=== PATIENT | male | born 1960 | race Caucasian/White ===

== ENCOUNTER 2017-04-26 20:38 | Inpatient (IN) | payer MEDICAID ==
[~2017-04-26] VITALS: Ht 157.5 cm; Wt 78.7 kg
[~2017-04-26 20:38] MED LIST: AMLO5TAB16 PO; ASPI-1265 PO; CARV6.253 PO; CLON0.1T20 PO; HYDR-4069 PO; INSU100C10 SQ; INSU100I31 SQ
[2017-04-26 21:07] LABS: BASOPHILS % (AUTO) 0.4 % (0-1); EOSINOPHILS # (AUTO) 0.3 X10'3 (0-0.9); EOSINOPHILS % (AUTO) 3.2 % (0-6); HEMATOCRIT 33.4 % (42.0-52.0); HEMOGLOBIN 10.9 g/dl (14.0-17.9); LYMPHOCYTES # (AUTO) 1.2 X10'3 (1.1-4.8); MEAN CORPUSCULAR HEMOGLOBIN 28.2 PG (27.0-31.0); MEAN CORPUSCULAR HGB CONC 32.8 % (33.0-36.5); MEAN CORPUSCULAR VOLUME 85.9 FL (78-98); MEAN PLATELET VOLUME 7.7 FL (7.4-10.4); MONOCYTES # (AUTO) 0.6 X10'3 (0-0.9); MONOCYTES % (AUTO) 5.2 % (2-12); NEUTROPHILS # (AUTO) 8.9 X10'3 (1.8-7.7); NEUTROPHILS % (AUTO) 80.2 % (42-75); PLATELET COUNT 331 X10'3 (140-440); RED BLOOD COUNT 3.89 X10'6 (4.70-6.10); RED CELL DISTRIBUTION WIDTH 17.1 % (11.5-14.5); WHITE BLOOD COUNT 11.1 X10'3 (4.5-11.0)
[2017-04-26 21:19] LABS: PARTIAL THROMBOPLASTIN TIME 26 SECONDS (22-32); PROTHROMBIN TIME 10.5 SECONDS (9.0-12.0)
[2017-04-26 21:29] LABS: ALANINE AMINOTRANSFERASE 47 U/L (12-78); ALBUMIN 1.9 G/DL (3.4-5.0); ALBUMIN/GLOBULIN RATIO 0.4 (1.1-1.5); ALKALINE PHOSPHATASE 262 IU/L (46-116); ANION GAP 8 (8-16); ASPARTATE AMINO TRANSFERASE 47 U/L (10-37); BILIRUBIN,TOTAL 0.4 MG/DL (0.1-1.0); BLOOD UREA NITROGEN 32 MG/DL (7-18); BUN/CREATININE RATIO 15.2 (5.4-32.0); CALCIUM 8.2 MG/DL (8.5-10.1); CHLORIDE 105 MMOL/L (99-107); GLUCOSE 324 MG/DL (70-104); MAGNESIUM 1.8 MG/DL (1.5-2.4); POTASSIUM 4.7 MMOL/L (3.5-5.1); SODIUM 136 MMOL/L (135-145); TOTAL CARBON DIOXIDE 22.6 MMOL/L (24-32); TOTAL PROTEIN 6.6 G/DL (6.4-8.2); eGFR 33 ML/MIN
[2017-04-26] MEDS ORDERED: clindamycin 600mg/D5W 50ml 50 ML IV ONE (21:30)
[2017-04-26 22:25] LABS: CLARITY,URINE CLEAR (Clear); COLOR,URINE YELLOW (Yellow); GLUCOSE, URINE 500 mg/dl (Neg); KETONES,URINE NEGATIVE (Neg); LEUKOCYTE ESTERASE ,URINE NEGATIVE (Neg); NITRITES, URINE NEGATIVE (Neg); OCCULT BLOOD,URINE MODERATE (Neg); PROTEIN,URINE >=300 mg/dl (Neg); UROBILINOGEN,URINE 0.2 E.U/dL (0.2-1.0)
[2017-04-26] MEDS ORDERED: furosemide 10 MG/1 ML 10ml inj IV ONE (22:25)
[2017-04-26] MEDS ORDERED: CefTRIAXone inj 250 MG in normal saline 50ml IV soln 50 ML IV ONE (22:25)
[2017-04-26] MEDS ORDERED: azithromycin/NS 500mg/250ml 250 ML IV ONE (22:25)
[2017-04-26 22:31] LABS: UA COLLECTION TYPE URINAL
[2017-04-26 22:32] LABS: BACTERIA,URINE FEW /HPF (Neg); SQUAMOUS EPITHELIAL CELL,UR FEW /LPF (FEW); WBC,URINE NONE SEEN /HPF (0-4)
[2017-04-26] MEDS ORDERED: cefTRIAXone 1g/NS 100ml IVPB 100 ML IV ONE (22:50)
[2017-04-27] MEDS ORDERED: magnesium 2GM in 50ml NS 50 ML IV PRN (00:05)
[2017-04-27] MEDS ORDERED: ipratropium/albuterol 3ml nebule NEB PRN (00:05)
[2017-04-27] MEDS ORDERED: albuterol 2.5 MG/3 ML nebule NEB PRN (00:05)
[2017-04-27] MEDS ORDERED: potassium Cl 20 mEq SR tablet PO PRN ×2 (00:05)
[2017-04-27] MEDS ORDERED: potassium Cl 40MEQ/NS 500ml 500 ML IV PRN ×2 (00:05)
[2017-04-27] MEDS ORDERED: magnesium 4gm in 100ml NS 100 ML IV PRN (00:05)
[2017-04-27] MEDS ORDERED: mag hydrox/Alum hydrox/simeth 30ml oral suspension PO PRN (00:05)
[2017-04-27] MEDS ORDERED: ondansetron/PF 4mg/2ml inj IV PRN (00:05)
[2017-04-27] MEDS ORDERED: magnesium Cl slow-release 64mg tablet PO PRN (00:05)
[2017-04-27] MEDS ORDERED: thiamine 100mg/ml 2ml inj. IV ONE (00:55)
[2017-04-27] MEDS ORDERED: haloperidol 5mg tablet PO PRN (00:55)
[2017-04-27] MEDS ORDERED: haloperidol lactate 5mg/ml inj IM PRN (00:55)
[2017-04-27] MEDS ORDERED: dextrose 50%-water 50ml dispensing syringe IV PRN (00:55)
[2017-04-27] MEDS ORDERED: LORazepam 2 mg/ml vial IV PRN (00:55)
[2017-04-27 02:10] VITALS: BP 158/96
[2017-04-27] MEDS: normal saline 1000ml 1,000 ML IV SCH ×2 (02:21→16:27)
[2017-04-27] MEDS: piperacillin/tazo 4.5gm/100ml 100 ML IV SCH ×3 (02:28→16:27)
[2017-04-27] MEDS: magnesium hydroxide 30ml (MOM) UD suspension PO PRN (02:44)
[2017-04-27] MEDS: HYDROcodone/acetaminophen 10/325mg tab PO PRN ×2 (03:06→16:31)
[2017-04-27 07:00] VITALS: BP 144/84
[2017-04-27] MEDS ORDERED: lactobacillus rhamnosus 10,000 MMU CELLS/CAPSULE PO SCH (07:30)
[2017-04-27] MEDS: carvedilol 6.25mg tablet PO SCH ×2 (08:35→20:00)
[2017-04-27] MEDS: heparin, porcine 5000 units/ml vial SQ SCH ×2 (08:35→20:56)
[2017-04-27] MEDS: aspirin 81mg tab.chew PO SCH (08:35)
[2017-04-27] MEDS: cloNIDine 0.1 mg tablet PO SCH ×3 (08:36→20:57)
[2017-04-27] MEDS: amLODIPine 5mg tablet PO SCH (08:36)
[2017-04-27] MEDS: hydrALAZINE 25 MG tablet PO SCH ×2 (08:36→16:27)
[2017-04-27] MEDS: K and/or MAG REPLACEMENT MC SCH (08:41)
[2017-04-27 11:00] VITALS: BP 133/78
[2017-04-27 19:30] VITALS: BP 105/62
[2017-04-27 20:00] VITALS: BP 104/59
[2017-04-27 20:56] VITALS: BP 107/58
[2017-04-27] MEDS: CefTRIAXone 2gm/NS 100ml IVPB 100 ML IV SCH (20:57)
[2017-04-27] MEDS: insulin glargine (Lantus) pen - multi-dose SQ SCH (21:53)
[2017-04-28] VITALS: BP 110/70
[2017-04-28] MEDS: piperacillin/tazo 4.5gm/100ml 100 ML IV SCH ×3 (00:24→16:35)
[2017-04-28] MEDS: magnesium hydroxide 30ml (MOM) UD suspension PO PRN (05:36)
[2017-04-28 06:05] LABS: BASOPHILS # (AUTO) 0.1 X10'3 (0-0.2); BASOPHILS % (AUTO) 1.3 % (0-1); EOSINOPHILS # (AUTO) 0.5 X10'3 (0-0.9); EOSINOPHILS % (AUTO) 7.3 % (0-6); HEMATOCRIT 29.3 % (42.0-52.0); HEMOGLOBIN 9.6 g/dl (14.0-17.9); LYMPHOCYTES # (AUTO) 1.1 X10'3 (1.1-4.8); MEAN CORPUSCULAR HEMOGLOBIN 28.2 PG (27.0-31.0); MEAN CORPUSCULAR HGB CONC 32.9 % (33.0-36.5); MEAN CORPUSCULAR VOLUME 85.7 FL (78-98); MEAN PLATELET VOLUME 7.4 FL (7.4-10.4); MONOCYTES # (AUTO) 0.5 X10'3 (0-0.9); MONOCYTES % (AUTO) 7.5 % (2-12); NEUTROPHILS # (AUTO) 4.1 X10'3 (1.8-7.7); NEUTROPHILS % (AUTO) 65.9 % (42-75); PLATELET COUNT 264 X10'3 (140-440); RED BLOOD COUNT 3.42 X10'6 (4.70-6.10); RED CELL DISTRIBUTION WIDTH 16.5 % (11.5-14.5); WHITE BLOOD COUNT 6.2 X10'3 (4.5-11.0)
[2017-04-28 06:24] LABS: ALANINE AMINOTRANSFERASE 27 U/L (12-78); ALBUMIN 1.4 G/DL (3.4-5.0); ALBUMIN/GLOBULIN RATIO 0.4 (1.1-1.5); ALKALINE PHOSPHATASE 180 IU/L (46-116); ANION GAP 8 (8-16); ASPARTATE AMINO TRANSFERASE 29 U/L (10-37); BILIRUBIN,TOTAL 0.3 MG/DL (0.1-1.0); BLOOD UREA NITROGEN 38 MG/DL (7-18); BUN/CREATININE RATIO 15.2 (5.4-32.0); CHLORIDE 107 MMOL/L (99-107); CHOL/HDL RATIO 2.5 (0.00-4.99); CHOLESTEROL 112 MG/DL (0-200); GLUCOSE 144 MG/DL (70-104); HDL CHOLESTEROL 45 MG/DL (35-60); LDL CHOLESTEROL 64 MG/DL (50-100); MAGNESIUM 1.9 MG/DL (1.5-2.4); SODIUM 137 MMOL/L (135-145); TOTAL CARBON DIOXIDE 22.2 MMOL/L (24-32); TOTAL PROTEIN 5.3 G/DL (6.4-8.2); TRIGLYCERIDES 57 MG/DL (20-135); eGFR 27 ML/MIN
[2017-04-28 07:11] VITALS: BP 125/74
[2017-04-28] MEDS: aspirin 81mg tab.chew PO SCH (07:48)
[2017-04-28] MEDS: amLODIPine 5mg tablet PO SCH (07:49)
[2017-04-28] MEDS: LACTOBACILLUS RHAMNOSUS GG 15 billion unit sprinkle caps PO SCH (07:49)
[2017-04-28] MEDS: hydrALAZINE 25 MG tablet PO SCH ×3 (07:49→16:30)
[2017-04-28] MEDS: heparin, porcine 5000 units/ml vial SQ SCH ×2 (07:50→20:03)
[2017-04-28] MEDS: HYDROcodone/acetaminophen 10/325mg tab PO PRN ×2 (07:59→20:01)
[2017-04-28] MEDS: K and/or MAG REPLACEMENT MC SCH (08:00)
[2017-04-28] MEDS: cloNIDine 0.1 mg tablet PO SCH ×3 (08:00→22:50)
[2017-04-28] MEDS: carvedilol 6.25mg tablet PO SCH ×2 (08:00→20:01)
[2017-04-28 11:00] VITALS: BP 122/70
[2017-04-28] MEDS ORDERED: furosemide 20 MG/2 ML vial IV ONE (17:20)
[2017-04-28] MEDS ORDERED: furosemide 10 MG/1 ML 10ml inj IV ONE ×2 (18:35→20:25)
[2017-04-28 18:45] VITALS: BP 130/75
[2017-04-28] MEDS ORDERED: albumin (human) 25% 100 ML IV solution IV ONE (19:45)
[2017-04-28] MEDS: CefTRIAXone 2gm/NS 100ml IVPB 100 ML IV SCH (20:41)
[2017-04-28] MEDS: insulin glargine (Lantus) pen - multi-dose SQ SCH (21:00)
[2017-04-28 21:40] VITALS: BP 133/78
[2017-04-28] MEDS ORDERED: glucagon, human recombinant 1mg kit SUBCUT PRN (22:20)
[2017-04-28] MEDS ORDERED: MESSAGE TO PHARMACY PO ONE (22:20)
[2017-04-28] MEDS ORDERED: dextrose 50%-water 50ml dispensing syringe IV PRN ×2 (22:20)
[2017-04-28] MEDS ORDERED: Insulin Detemir pen SQ ONE (23:11)
[2017-04-29] MEDS: piperacillin/tazo 4.5gm/100ml 100 ML IV SCH ×3 (00:42→16:51)
[2017-04-29] MEDS ORDERED: LORazepam 1 MG tablet PO PRN (00:55)
[2017-04-29] MEDS ORDERED: LORazepam 2 mg/ml vial IV PRN (00:55)
[2017-04-29 01:06] VITALS: BP 123/73
[2017-04-29 06:18] LABS: BASOPHILS # (AUTO) 0.1 X10'3 (0-0.2); BASOPHILS % (AUTO) 1.5 % (0-1); EOSINOPHILS # (AUTO) 0.4 X10'3 (0-0.9); EOSINOPHILS % (AUTO) 6.1 % (0-6); HEMATOCRIT 29.7 % (42.0-52.0); HEMOGLOBIN 9.5 g/dl (14.0-17.9); LYMPHOCYTES # (AUTO) 1.3 X10'3 (1.1-4.8); LYMPHOCYTES % (AUTO) 19.9 % (21-51); MEAN CORPUSCULAR HEMOGLOBIN 27.8 PG (27.0-31.0); MEAN CORPUSCULAR HGB CONC 32.1 % (33.0-36.5); MEAN CORPUSCULAR VOLUME 86.7 FL (78-98); MEAN PLATELET VOLUME 7.7 FL (7.4-10.4); MONOCYTES # (AUTO) 0.6 X10'3 (0-0.9); MONOCYTES % (AUTO) 10.1 % (2-12); NEUTROPHILS % (AUTO) 62.4 % (42-75); PLATELET COUNT 275 X10'3 (140-440); RED BLOOD COUNT 3.43 X10'6 (4.70-6.10); RED CELL DISTRIBUTION WIDTH 16.8 % (11.5-14.5); WHITE BLOOD COUNT 6.4 X10'3 (4.5-11.0)
[2017-04-29 06:54] LABS: ALANINE AMINOTRANSFERASE 30 U/L (12-78); ALBUMIN 1.5 G/DL (3.4-5.0); ALBUMIN/GLOBULIN RATIO 0.4 (1.1-1.5); ALKALINE PHOSPHATASE 176 IU/L (46-116); ANION GAP 12 (8-16); ASPARTATE AMINO TRANSFERASE 23 U/L (10-37); BILIRUBIN,TOTAL 0.3 MG/DL (0.1-1.0); BLOOD UREA NITROGEN 52 MG/DL (7-18); BUN/CREATININE RATIO 16.3 (5.4-32.0); CALCIUM 8.1 MG/DL (8.5-10.1); CHLORIDE 105 MMOL/L (99-107); GLUCOSE 105 MG/DL (70-104); MAGNESIUM 2.3 MG/DL (1.5-2.4); POTASSIUM 5.2 MMOL/L (3.5-5.1); SODIUM 139 MMOL/L (135-145); TOTAL CARBON DIOXIDE 22.2 MMOL/L (24-32); TOTAL PROTEIN 5.6 G/DL (6.4-8.2); eGFR 20 ML/MIN
[2017-04-29] MEDS: heparin, porcine 5000 units/ml vial SQ SCH (07:21)
[2017-04-29] MEDS: K and/or MAG REPLACEMENT MC SCH (07:21)
[2017-04-29 07:30] VITALS: BP 130/78
[2017-04-29] MEDS: LACTOBACILLUS RHAMNOSUS GG 15 billion unit sprinkle caps PO SCH (07:30)
[2017-04-29] MEDS: hydrALAZINE 25 MG tablet PO SCH ×3 (08:15→15:08)
[2017-04-29] MEDS: carvedilol 6.25mg tablet PO SCH ×2 (08:15→19:13)
[2017-04-29] MEDS: furosemide 40mg/4ml inj IV SCH ×2 (08:15→22:17)
[2017-04-29] MEDS: amLODIPine 5mg tablet PO SCH (08:15)
[2017-04-29] MEDS: aspirin 81mg tab.chew PO SCH (08:16)
[2017-04-29] MEDS: cloNIDine 0.1 mg tablet PO SCH ×3 (08:16→22:18)
[2017-04-29] MEDS ORDERED: LIDOcaine 1%/PF (10mg/ml) 5ml vial ONE (08:22)
[2017-04-29] MEDS: HYDROcodone/acetaminophen 10/325mg tab PO PRN ×2 (08:22→19:14)
[2017-04-29 11:30] VITALS: BP 93/60
[2017-04-29] MEDS: insulin Lispro (HumaLOG) vial - multi-dose SQ SCH (19:31)
[2017-04-29 20:00] VITALS: BP 116/70
[2017-04-29] MEDS ORDERED: albumin (human) 25% 100 ML IV solution IV ONE (20:45)
[2017-04-29] MEDS: spironolactone 25 MG tablet PO SCH (20:45)
[2017-04-29] MEDS ORDERED: Insulin Detemir pen SQ SCH (21:00)
[2017-04-29] MEDS: CefTRIAXone 2gm/NS 100ml IVPB 100 ML IV SCH (22:17)
[2017-04-29] MEDS: Insulin Detemir pen SQ SCH (22:21)
[2017-04-30] VITALS: BP 116/68
[2017-04-30] MEDS: piperacillin/tazo 4.5gm/100ml 100 ML IV SCH (00:39)
[2017-04-30] MEDS: hydrALAZINE 25 MG tablet PO SCH ×3 (00:39→16:00)
[2017-04-30] MEDS: piperacillin-tazo 2.25gm/50ml 50 ML IV SCH ×4 (03:17→20:17)
[2017-04-30 03:18] LABS: CLARITY,URINE CLOUDY (Clear); COLOR,URINE YELLOW (Yellow); GLUCOSE, URINE NEGATIVE (Neg); KETONES,URINE NEGATIVE (Neg); LEUKOCYTE ESTERASE ,URINE TRACE (Neg); NITRITES, URINE NEGATIVE (Neg); OCCULT BLOOD,URINE LARGE (Neg); PROTEIN,URINE 100 mg/dl (Neg); UROBILINOGEN,URINE 0.2 E.U/dL (0.2-1.0)
[2017-04-30 03:26] LABS: UA COLLECTION TYPE FOLEY CATH
[2017-04-30 03:28] LABS: WBC,URINE 0-4 /HPF (0-4)
[2017-04-30 03:29] LABS: RBC,URINE TNTC /HPF (0-2)
[2017-04-30 03:30] LABS: AMORPHOUS URATES 1+; BACTERIA,URINE FEW /HPF (Neg); MUCUS STRANDS NONE SEEN /LPF (Neg); SQUAMOUS EPITHELIAL CELL,UR NONE SEEN /LPF (FEW)
[2017-04-30 04:19] LABS: UA EOSINOPHILS NO EOS /HPF
[2017-04-30] MEDS: dextrose ORAL solution 15 GM/59 ML bottle PO PRN (05:15)
[2017-04-30 06:07] LABS: BASOPHILS # (AUTO) 0.1 X10'3 (0-0.2); BASOPHILS % (AUTO) 1.3 % (0-1); EOSINOPHILS # (AUTO) 0.4 X10'3 (0-0.9); EOSINOPHILS % (AUTO) 5.4 % (0-6); HEMATOCRIT 30.2 % (42.0-52.0); HEMOGLOBIN 10.1 g/dl (14.0-17.9); LYMPHOCYTES # (AUTO) 1.2 X10'3 (1.1-4.8); LYMPHOCYTES % (AUTO) 16.4 % (21-51); MEAN CORPUSCULAR HEMOGLOBIN 28.1 PG (27.0-31.0); MEAN CORPUSCULAR HGB CONC 33.3 % (33.0-36.5); MEAN CORPUSCULAR VOLUME 84.3 FL (78-98); MEAN PLATELET VOLUME 7.7 FL (7.4-10.4); MONOCYTES # (AUTO) 0.7 X10'3 (0-0.9); MONOCYTES % (AUTO) 9.5 % (2-12); NEUTROPHILS # (AUTO) 4.8 X10'3 (1.8-7.7); NEUTROPHILS % (AUTO) 67.4 % (42-75); PLATELET COUNT 315 X10'3 (140-440); RED BLOOD COUNT 3.58 X10'6 (4.70-6.10); RED CELL DISTRIBUTION WIDTH 16.6 % (11.5-14.5); WHITE BLOOD COUNT 7.1 X10'3 (4.5-11.0)
[2017-04-30 06:31] LABS: ALANINE AMINOTRANSFERASE 44 U/L (12-78); ALBUMIN 1.7 G/DL (3.4-5.0); ALBUMIN/GLOBULIN RATIO 0.4 (1.1-1.5); ALKALINE PHOSPHATASE 226 IU/L (46-116); ANION GAP 14 (8-16); ASPARTATE AMINO TRANSFERASE 46 U/L (10-37); BILIRUBIN,TOTAL 0.3 MG/DL (0.1-1.0); BLOOD UREA NITROGEN 63 MG/DL (7-18); BUN/CREATININE RATIO 16.2 (5.4-32.0); CALCIUM 8.4 MG/DL (8.5-10.1); CHLORIDE 104 MMOL/L (99-107); GLUCOSE 85 MG/DL (70-104); MAGNESIUM 2.3 MG/DL (1.5-2.4); POTASSIUM 5.3 MMOL/L (3.5-5.1); SODIUM 138 MMOL/L (135-145); TOTAL CARBON DIOXIDE 20.3 MMOL/L (24-32); TOTAL PROTEIN 6.1 G/DL (6.4-8.2); eGFR 16 ML/MIN
[2017-04-30 06:50] VITALS: BP 102/63
[2017-04-30] MEDS: LACTOBACILLUS RHAMNOSUS GG 15 billion unit sprinkle caps PO SCH (07:30)
[2017-04-30] MEDS: amLODIPine 5mg tablet PO SCH (08:00)
[2017-04-30] MEDS: cloNIDine 0.1 mg tablet PO SCH ×3 (08:00→20:17)
[2017-04-30] MEDS: spironolactone 25 MG tablet PO SCH (08:00)
[2017-04-30] MEDS: furosemide 40mg/4ml inj IV SCH ×2 (08:00→16:37)
[2017-04-30] MEDS: carvedilol 6.25mg tablet PO SCH ×2 (08:00→20:17)
[2017-04-30] MEDS: K and/or MAG REPLACEMENT MC SCH (08:00)
[2017-04-30] MEDS: aspirin 81mg tab.chew PO SCH ×3 (08:30→09:45)
[2017-04-30] MEDS: HYDROcodone/acetaminophen 10/325mg tab PO PRN ×2 (09:35→20:17)
[2017-04-30 10:26] LABS: LIPASE 118 U/L (73-393)
[2017-04-30 10:55] VITALS: BP 122/71
[2017-04-30] MEDS ORDERED: epoetin 20,000 units/ml inj IV ONE (16:00)
[2017-04-30 16:22] VITALS: BP 123/70
[2017-04-30 18:00] VITALS: BP 135/72
[2017-04-30 18:06] LABS: % IRON SATURATION 16 % (11-46); IRON 39 UG/DL (53-167); TOTAL IRON BINDING CAPACITY 245 UG/DL (259-388)
[2017-04-30 18:10] LABS: FERRITIN 43 NG/ML (26-388)
[2017-04-30] MEDS: oxymetazoline 15 ML nasal spray NS PRN (21:31)
[2017-04-30] MEDS: CefTRIAXone 2gm/NS 100ml IVPB 100 ML IV SCH (22:34)
[2017-04-30] MEDS: Insulin Detemir pen SQ SCH (22:54)
[2017-05-01] VITALS (12 sets, daily range): BP systolic 122–189; BP diastolic 69–130
[2017-05-01] MEDS: oxymetazoline 15 ML nasal spray NS PRN (00:43)
[2017-05-01] MEDS: hydrALAZINE 25 MG tablet PO SCH ×4 (00:43→23:50)
[2017-05-01] MEDS: furosemide 40mg/4ml inj IV SCH ×2 (00:43→08:26)
[2017-05-01] MEDS ORDERED: LORazepam 1 MG tablet PO PRN (00:55)
[2017-05-01] MEDS ORDERED: LORazepam 2 mg/ml vial IV PRN (00:55)
[2017-05-01] MEDS ORDERED: guaiFENesin/DM oral syrup 5 ML CUP PO PRN (02:05)
[2017-05-01] MEDS: piperacillin-tazo 2.25gm/50ml 50 ML IV SCH ×4 (03:12→21:22)
[2017-05-01 06:16] LABS: BASOPHILS # (AUTO) 0.1 X10'3 (0-0.2); BASOPHILS % (AUTO) 1.1 % (0-1); EOSINOPHILS # (AUTO) 0.3 X10'3 (0-0.9); EOSINOPHILS % (AUTO) 3.6 % (0-6); HEMATOCRIT 31.3 % (42.0-52.0); HEMOGLOBIN 10.5 g/dl (14.0-17.9); LYMPHOCYTES % (AUTO) 13.2 % (21-51); MEAN CORPUSCULAR HEMOGLOBIN 28.4 PG (27.0-31.0); MEAN CORPUSCULAR HGB CONC 33.5 % (33.0-36.5); MEAN CORPUSCULAR VOLUME 84.7 FL (78-98); MEAN PLATELET VOLUME 7.7 FL (7.4-10.4); MONOCYTES # (AUTO) 0.7 X10'3 (0-0.9); MONOCYTES % (AUTO) 9.7 % (2-12); NEUTROPHILS # (AUTO) 5.2 X10'3 (1.8-7.7); NEUTROPHILS % (AUTO) 72.4 % (42-75); PLATELET COUNT 268 X10'3 (140-440); RED CELL DISTRIBUTION WIDTH 16.4 % (11.5-14.5); WHITE BLOOD COUNT 7.2 X10'3 (4.5-11.0)
[2017-05-01 06:34] LABS: ANION GAP 12 (8-16); BLOOD UREA NITROGEN 74 MG/DL (7-18); BUN/CREATININE RATIO 16.4 (5.4-32.0); CALCIUM 8.1 MG/DL (8.5-10.1); CHLORIDE 100 MMOL/L (99-107); GLUCOSE 137 MG/DL (70-104); MAGNESIUM 2.4 MG/DL (1.5-2.4); POTASSIUM 5.5 MMOL/L (3.5-5.1); SODIUM 135 MMOL/L (135-145); TOTAL CARBON DIOXIDE 23.2 MMOL/L (24-32); eGFR 14 ML/MIN
[2017-05-01 06:35] LABS: ALANINE AMINOTRANSFERASE 49 U/L (12-78); ALBUMIN 1.7 G/DL (3.4-5.0); ALBUMIN/GLOBULIN RATIO 0.4 (1.1-1.5); ALKALINE PHOSPHATASE 202 IU/L (46-116); ASPARTATE AMINO TRANSFERASE 41 U/L (10-37); BILIRUBIN,TOTAL 0.3 MG/DL (0.1-1.0); TOTAL PROTEIN 5.9 G/DL (6.4-8.2)
[2017-05-01] MEDS: carvedilol 6.25mg tablet PO SCH ×2 (08:00→21:20)
[2017-05-01] MEDS: cloNIDine 0.1 mg tablet PO SCH (08:00)
[2017-05-01] MEDS: aspirin 81mg tab.chew PO SCH (08:25)
[2017-05-01] MEDS: insulin Lispro (HumaLOG) vial - multi-dose SQ SCH ×2 (08:25→13:25)
[2017-05-01] MEDS: amLODIPine 5mg tablet PO SCH (08:26)
[2017-05-01] MEDS: LACTOBACILLUS RHAMNOSUS GG 15 billion unit sprinkle caps PO SCH (08:26)
[2017-05-01] MEDS: HYDROcodone/acetaminophen 10/325mg tab PO PRN ×2 (08:28→21:21)
[2017-05-01 11:06] LABS: ALBUMIN 1.7 G/DL (3.4-5.0); ANION GAP 14 (8-16); BLOOD UREA NITROGEN 73 MG/DL (7-18); BUN/CREATININE RATIO 16.6 (5.4-32.0); CALCIUM 8.1 MG/DL (8.5-10.1); CHLORIDE 100 MMOL/L (99-107); GLUCOSE 124 MG/DL (70-104); POTASSIUM 5.7 MMOL/L (3.5-5.1); SODIUM 136 MMOL/L (135-145); TOTAL CARBON DIOXIDE 21.8 MMOL/L (24-32); eGFR 14 ML/MIN
[2017-05-01] MEDS: dextrose ORAL solution 15 GM/59 ML bottle PO PRN (17:24)
[2017-05-01] MEDS: DOBUTamine-DoBUTrex 500mg/D5W 250 ML IV SCH (20:01)
[2017-05-01] MEDS: furosemide inj 100 ML IV SCH (20:14)
[2017-05-01] MEDS: Insulin Detemir pen SQ SCH (21:00)
[2017-05-01] MEDS ORDERED: nitroGLYCERIN 0.4mg/hour patch TD ONE (21:15)
[2017-05-02] VITALS (19 sets, daily range): BP systolic 109–157; BP diastolic 52–80
[2017-05-02] MEDS: piperacillin-tazo 2.25gm/50ml 50 ML IV SCH ×4 (01:28→19:14)
[2017-05-02] MEDS: DOBUTamine-DoBUTrex 500mg/D5W 250 ML IV SCH (03:37)
[2017-05-02 05:45] LABS: BASOPHILS # (AUTO) 0.1 X10'3 (0-0.2); EOSINOPHILS # (AUTO) 0.4 X10'3 (0-0.9); EOSINOPHILS % (AUTO) 5.8 % (0-6); HEMATOCRIT 27.9 % (42.0-52.0); HEMOGLOBIN 9.3 g/dl (14.0-17.9); LYMPHOCYTES # (AUTO) 1.1 X10'3 (1.1-4.8); LYMPHOCYTES % (AUTO) 16.6 % (21-51); MEAN CORPUSCULAR HEMOGLOBIN 28.2 PG (27.0-31.0); MEAN CORPUSCULAR HGB CONC 33.4 % (33.0-36.5); MEAN CORPUSCULAR VOLUME 84.4 FL (78-98); MEAN PLATELET VOLUME 7.9 FL (7.4-10.4); MONOCYTES # (AUTO) 0.6 X10'3 (0-0.9); MONOCYTES % (AUTO) 9.6 % (2-12); NEUTROPHILS # (AUTO) 4.5 X10'3 (1.8-7.7); PLATELET COUNT 246 X10'3 (140-440); RED BLOOD COUNT 3.31 X10'6 (4.70-6.10); RED CELL DISTRIBUTION WIDTH 16.7 % (11.5-14.5); WHITE BLOOD COUNT 6.8 X10'3 (4.5-11.0)
[2017-05-02 06:15] LABS: ALANINE AMINOTRANSFERASE 43 U/L (12-78); ALBUMIN 1.6 G/DL (3.4-5.0); ALBUMIN/GLOBULIN RATIO 0.4 (1.1-1.5); ALKALINE PHOSPHATASE 175 IU/L (46-116); ANION GAP 13 (8-16); ASPARTATE AMINO TRANSFERASE 31 U/L (10-37); BILIRUBIN,TOTAL 0.3 MG/DL (0.1-1.0); BLOOD UREA NITROGEN 77 MG/DL (7-18); BUN/CREATININE RATIO 15.7 (5.4-32.0); CALCIUM 7.9 MG/DL (8.5-10.1); CHLORIDE 100 MMOL/L (99-107); GLUCOSE 140 MG/DL (70-104); MAGNESIUM 2.3 MG/DL (1.5-2.4); POTASSIUM 5.4 MMOL/L (3.5-5.1); SODIUM 135 MMOL/L (135-145); TOTAL CARBON DIOXIDE 22.5 MMOL/L (24-32); TOTAL PROTEIN 5.8 G/DL (6.4-8.2); eGFR 12 ML/MIN
[2017-05-02] MEDS ORDERED: lactobacillus rhamnosus 10,000 MMU CELLS/CAPSULE PO SCH (07:53)
[2017-05-02] MEDS: carvedilol 6.25mg tablet PO SCH ×2 (07:55→20:00)
[2017-05-02] MEDS: amLODIPine 5mg tablet PO SCH (07:56)
[2017-05-02] MEDS: aspirin 81mg tab.chew PO SCH (07:56)
[2017-05-02] MEDS: hydrALAZINE 25 MG tablet PO SCH ×3 (07:56→23:33)
[2017-05-02] MEDS: magnesium hydroxide 30ml (MOM) UD suspension PO PRN (07:58)
[2017-05-02] MEDS: HYDROcodone/acetaminophen 10/325mg tab PO PRN ×2 (07:58→19:24)
[2017-05-02] MEDS: furosemide inj 100 ML IV SCH (19:13)
[2017-05-02] MEDS: Insulin Detemir pen SQ SCH (21:20)
[2017-05-03] VITALS (17 sets, daily range): BP systolic 127–159; BP diastolic 58–86
[2017-05-03] MEDS: piperacillin-tazo 2.25gm/50ml 50 ML IV SCH ×4 (01:56→20:40)
[2017-05-03] MEDS: hydrALAZINE 25 MG tablet PO SCH ×3 (09:19→23:53)
[2017-05-03] MEDS: lactobacillus rhamnosus 10,000 MMU CELLS/CAPSULE PO SCH (09:19)
[2017-05-03] MEDS: aspirin 81mg tab.chew PO SCH (09:19)
[2017-05-03] MEDS: HYDROcodone/acetaminophen 10/325mg tab PO PRN ×2 (09:19→20:41)
[2017-05-03] MEDS: amLODIPine 5mg tablet PO SCH (09:19)
[2017-05-03] MEDS: carvedilol 6.25mg tablet PO SCH ×2 (09:19→20:41)
[2017-05-03] MEDS: magnesium hydroxide 30ml (MOM) UD suspension PO PRN (10:17)
[2017-05-03] MEDS: DOBUTamine-DoBUTrex 500mg/D5W 250 ML IV SCH ×2 (11:31→12:44)
[2017-05-03 15:15] LABS: BASOPHILS # (AUTO) 0.1 X10'3 (0-0.2); BASOPHILS % (AUTO) 0.8 % (0-1); EOSINOPHILS # (AUTO) 0.3 X10'3 (0-0.9); EOSINOPHILS % (AUTO) 3.3 % (0-6); HEMATOCRIT 27.9 % (42.0-52.0); HEMOGLOBIN 9.5 g/dl (14.0-17.9); LYMPHOCYTES % (AUTO) 11.8 % (21-51); MEAN CORPUSCULAR HEMOGLOBIN 28.9 PG (27.0-31.0); MEAN CORPUSCULAR VOLUME 84.9 FL (78-98); MEAN PLATELET VOLUME 7.8 FL (7.4-10.4); MONOCYTES # (AUTO) 0.8 X10'3 (0-0.9); MONOCYTES % (AUTO) 9.7 % (2-12); NEUTROPHILS # (AUTO) 6.1 X10'3 (1.8-7.7); NEUTROPHILS % (AUTO) 74.4 % (42-75); PLATELET COUNT 265 X10'3 (140-440); RED BLOOD COUNT 3.29 X10'6 (4.70-6.10); RED CELL DISTRIBUTION WIDTH 16.6 % (11.5-14.5); WHITE BLOOD COUNT 8.2 X10'3 (4.5-11.0)
[2017-05-03 15:26] LABS: ALBUMIN 1.9 G/DL (3.4-5.0); ANION GAP 12 (8-16); BLOOD UREA NITROGEN 87 MG/DL (7-18); BUN/CREATININE RATIO 16.4 (5.4-32.0); CALCIUM 8.2 MG/DL (8.5-10.1); CHLORIDE 96 MMOL/L (99-107); GLUCOSE 201 MG/DL (70-104); MAGNESIUM 2.5 MG/DL (1.5-2.4); PHOSPHORUS 5.9 MG/DL (2.3-4.5); POTASSIUM 5.7 MMOL/L (3.5-5.1); SODIUM 134 MMOL/L (135-145); TOTAL CARBON DIOXIDE 26.2 MMOL/L (24-32); eGFR 11 ML/MIN
[2017-05-03] MEDS ORDERED: sodium polystyrene sulfonate 15gm/60ml oral suspension PO ONE (17:10)
[2017-05-03] MEDS: polyethylene glycol 3350 17gm powd pack PO SCH ×2 (20:41→20:52)
[2017-05-03] MEDS: Insulin Detemir pen SQ SCH (20:46)
[2017-05-03 21:32] LABS: ALANINE AMINOTRANSFERASE 36 U/L (12-78); ALBUMIN 1.6 G/DL (3.4-5.0); ALBUMIN/GLOBULIN RATIO 0.4 (1.1-1.5); ALKALINE PHOSPHATASE 151 IU/L (46-116); ANION GAP 12 (8-16); ASPARTATE AMINO TRANSFERASE 23 U/L (10-37); BILIRUBIN,TOTAL 0.3 MG/DL (0.1-1.0); BLOOD UREA NITROGEN 77 MG/DL (7-18); BUN/CREATININE RATIO 16.7 (5.4-32.0); CALCIUM 7.2 MG/DL (8.5-10.1); CHLORIDE 103 MMOL/L (99-107); GLUCOSE 179 MG/DL (70-104); MAGNESIUM 2.2 MG/DL (1.5-2.4); PHOSPHORUS 4.8 MG/DL (2.3-4.5); POTASSIUM 4.3 MMOL/L (3.5-5.1); SODIUM 138 MMOL/L (135-145); TOTAL CARBON DIOXIDE 22.9 MMOL/L (24-32); TOTAL PROTEIN 5.7 G/DL (6.4-8.2); eGFR 13 ML/MIN
[2017-05-04] VITALS (11 sets, daily range): BP systolic 146–169; BP diastolic 47–72
[2017-05-04] MEDS: piperacillin-tazo 2.25gm/50ml 50 ML IV SCH ×4 (03:06→20:25)
[2017-05-04 03:23] LABS: ALANINE AMINOTRANSFERASE 42 U/L (12-78); ALBUMIN 1.9 G/DL (3.4-5.0); ALBUMIN/GLOBULIN RATIO 0.4 (1.1-1.5); ALKALINE PHOSPHATASE 162 IU/L (46-116); ANION GAP 13 (8-16); ASPARTATE AMINO TRANSFERASE 26 U/L (10-37); BILIRUBIN,TOTAL 0.4 MG/DL (0.1-1.0); BLOOD UREA NITROGEN 87 MG/DL (7-18); BUN/CREATININE RATIO 17.1 (5.4-32.0); CALCIUM 8.2 MG/DL (8.5-10.1); CHLORIDE 99 MMOL/L (99-107); GLUCOSE 148 MG/DL (70-104); MAGNESIUM 2.4 MG/DL (1.5-2.4); PHOSPHORUS 5.4 MG/DL (2.3-4.5); SODIUM 139 MMOL/L (135-145); TOTAL CARBON DIOXIDE 26.7 MMOL/L (24-32); TOTAL PROTEIN 6.3 G/DL (6.4-8.2); eGFR 12 ML/MIN
[2017-05-04 03:40] LABS: BASOPHILS # (AUTO) 0.1 X10'3 (0-0.2); BASOPHILS % (AUTO) 0.7 % (0-1); EOSINOPHILS # (AUTO) 0.3 X10'3 (0-0.9); EOSINOPHILS % (AUTO) 4.1 % (0-6); HEMATOCRIT 27.6 % (42.0-52.0); HEMOGLOBIN 9.2 g/dl (14.0-17.9); LYMPHOCYTES # (AUTO) 1.2 X10'3 (1.1-4.8); LYMPHOCYTES % (AUTO) 14.4 % (21-51); MEAN CORPUSCULAR HEMOGLOBIN 28.1 PG (27.0-31.0); MEAN CORPUSCULAR HGB CONC 33.4 % (33.0-36.5); MEAN CORPUSCULAR VOLUME 84.1 FL (78-98); MEAN PLATELET VOLUME 7.6 FL (7.4-10.4); MONOCYTES # (AUTO) 0.8 X10'3 (0-0.9); MONOCYTES % (AUTO) 10.2 % (2-12); NEUTROPHILS # (AUTO) 5.7 X10'3 (1.8-7.7); NEUTROPHILS % (AUTO) 70.6 % (42-75); PLATELET COUNT 285 X10'3 (140-440); RED BLOOD COUNT 3.29 X10'6 (4.70-6.10); RED CELL DISTRIBUTION WIDTH 16.1 % (11.5-14.5); WHITE BLOOD COUNT 8.1 X10'3 (4.5-11.0)
[2017-05-04 06:43] LABS: ALANINE AMINOTRANSFERASE 38 U/L (12-78); ALBUMIN 1.9 G/DL (3.4-5.0); ALBUMIN/GLOBULIN RATIO 0.4 (1.1-1.5); ALKALINE PHOSPHATASE 163 IU/L (46-116); ANION GAP 13 (8-16); ASPARTATE AMINO TRANSFERASE 25 U/L (10-37); BILIRUBIN,TOTAL 0.4 MG/DL (0.1-1.0); BLOOD UREA NITROGEN 87 MG/DL (7-18); BUN/CREATININE RATIO 16.4 (5.4-32.0); CALCIUM 8.2 MG/DL (8.5-10.1); CHLORIDE 98 MMOL/L (99-107); GLUCOSE 121 MG/DL (70-104); POTASSIUM 4.8 MMOL/L (3.5-5.1); SODIUM 138 MMOL/L (135-145); TOTAL CARBON DIOXIDE 27.3 MMOL/L (24-32); TOTAL PROTEIN 6.4 G/DL (6.4-8.2); eGFR 11 ML/MIN
[2017-05-04] MEDS: lactobacillus rhamnosus 10,000 MMU CELLS/CAPSULE PO SCH (07:43)
[2017-05-04] MEDS: carvedilol 6.25mg tablet PO SCH ×2 (07:43→20:25)
[2017-05-04] MEDS: hydrALAZINE 25 MG tablet PO SCH ×3 (07:44→23:38)
[2017-05-04] MEDS: aspirin 81mg tab.chew PO SCH (07:44)
[2017-05-04] MEDS: amLODIPine 5mg tablet PO SCH (07:44)
[2017-05-04] MEDS: HYDROcodone/acetaminophen 10/325mg tab PO PRN ×2 (10:56→20:44)
[2017-05-04] MEDS: DOBUTamine-DoBUTrex 500mg/D5W 250 ML IV SCH ×2 (10:57→19:25)
[2017-05-04] MEDS: polyethylene glycol 3350 17gm powd pack PO SCH (21:00)
[2017-05-04] MEDS: Insulin Detemir pen SQ SCH (21:00)
[2017-05-05] VITALS (11 sets, daily range): BP systolic 128–164; BP diastolic 55–88
[2017-05-05] MEDS: piperacillin-tazo 2.25gm/50ml 50 ML IV SCH ×4 (01:49→19:17)
[2017-05-05] MEDS: DOBUTamine-DoBUTrex 500mg/D5W 250 ML IV SCH ×3 (03:02→21:58)
[2017-05-05 06:16] LABS: BASOPHILS % (AUTO) 0.4 % (0-1); EOSINOPHILS # (AUTO) 0.5 X10'3 (0-0.9); EOSINOPHILS % (AUTO) 5.5 % (0-6); HEMATOCRIT 27.4 % (42.0-52.0); HEMOGLOBIN 9.4 g/dl (14.0-17.9); LYMPHOCYTES # (AUTO) 1.1 X10'3 (1.1-4.8); LYMPHOCYTES % (AUTO) 12.7 % (21-51); MEAN CORPUSCULAR HGB CONC 34.4 % (33.0-36.5); MEAN CORPUSCULAR VOLUME 84.1 FL (78-98); MEAN PLATELET VOLUME 7.6 FL (7.4-10.4); MONOCYTES # (AUTO) 0.8 X10'3 (0-0.9); MONOCYTES % (AUTO) 9.2 % (2-12); NEUTROPHILS # (AUTO) 6.3 X10'3 (1.8-7.7); NEUTROPHILS % (AUTO) 72.2 % (42-75); PLATELET COUNT 293 X10'3 (140-440); RED BLOOD COUNT 3.26 X10'6 (4.70-6.10); RED CELL DISTRIBUTION WIDTH 16.4 % (11.5-14.5); WHITE BLOOD COUNT 8.7 X10'3 (4.5-11.0)
[2017-05-05 06:58] LABS: ALBUMIN 1.9 G/DL (3.4-5.0); ANION GAP 12 (8-16); BLOOD UREA NITROGEN 83 MG/DL (7-18); BUN/CREATININE RATIO 15.7 (5.4-32.0); CALCIUM 8.2 MG/DL (8.5-10.1); CHLORIDE 96 MMOL/L (99-107); GLUCOSE 167 MG/DL (70-104); PHOSPHORUS 5.5 MG/DL (2.3-4.5); POTASSIUM 4.4 MMOL/L (3.5-5.1); SODIUM 137 MMOL/L (135-145); TOTAL CARBON DIOXIDE 28.6 MMOL/L (24-32); eGFR 11 ML/MIN
[2017-05-05] MEDS: amLODIPine 5mg tablet PO SCH (07:56)
[2017-05-05] MEDS: carvedilol 6.25mg tablet PO SCH ×2 (07:56→19:17)
[2017-05-05] MEDS: hydrALAZINE 25 MG tablet PO SCH ×3 (07:56→23:50)
[2017-05-05] MEDS: lactobacillus rhamnosus 10,000 MMU CELLS/CAPSULE PO SCH (07:56)
[2017-05-05] MEDS: aspirin 81mg tab.chew PO SCH (07:56)
[2017-05-05 13:05] LABS: ALANINE AMINOTRANSFERASE 34 U/L (12-78); ALBUMIN/GLOBULIN RATIO 0.4 (1.1-1.5); ALKALINE PHOSPHATASE 150 IU/L (46-116); ASPARTATE AMINO TRANSFERASE 26 U/L (10-37); BILIRUBIN,TOTAL 0.4 MG/DL (0.1-1.0); MAGNESIUM 2.3 MG/DL (1.5-2.4); TOTAL PROTEIN 6.4 G/DL (6.4-8.2)
[2017-05-05] MEDS: HYDROcodone/acetaminophen 10/325mg tab PO PRN (14:19)
[2017-05-05] MEDS: Insulin Detemir pen SQ SCH (21:00)
[2017-05-05] MEDS: polyethylene glycol 3350 17gm powd pack PO SCH (21:00)
[2017-05-06] VITALS (13 sets, daily range): BP systolic 137–159; BP diastolic 64–75
[2017-05-06] MEDS: piperacillin-tazo 2.25gm/50ml 50 ML IV SCH ×3 (02:11→13:25)
[2017-05-06 05:56] LABS: BASOPHILS # (AUTO) 0.1 X10'3 (0-0.2); BASOPHILS % (AUTO) 0.6 % (0-1); EOSINOPHILS # (AUTO) 0.4 X10'3 (0-0.9); EOSINOPHILS % (AUTO) 5.4 % (0-6); HEMATOCRIT 26.9 % (42.0-52.0); HEMOGLOBIN 9.2 g/dl (14.0-17.9); LYMPHOCYTES # (AUTO) 1.2 X10'3 (1.1-4.8); LYMPHOCYTES % (AUTO) 14.8 % (21-51); MEAN CORPUSCULAR HEMOGLOBIN 28.9 PG (27.0-31.0); MEAN CORPUSCULAR HGB CONC 34.3 % (33.0-36.5); MEAN CORPUSCULAR VOLUME 84.2 FL (78-98); MEAN PLATELET VOLUME 7.5 FL (7.4-10.4); MONOCYTES % (AUTO) 11.8 % (2-12); NEUTROPHILS # (AUTO) 5.6 X10'3 (1.8-7.7); NEUTROPHILS % (AUTO) 67.4 % (42-75); PLATELET COUNT 297 X10'3 (140-440); RED CELL DISTRIBUTION WIDTH 16.6 % (11.5-14.5); WHITE BLOOD COUNT 8.3 X10'3 (4.5-11.0)
[2017-05-06 06:03] LABS: ALANINE AMINOTRANSFERASE 29 U/L (12-78); ALBUMIN 1.8 G/DL (3.4-5.0); ALBUMIN/GLOBULIN RATIO 0.4 (1.1-1.5); ALKALINE PHOSPHATASE 138 IU/L (46-116); ANION GAP 10 (8-16); ASPARTATE AMINO TRANSFERASE 20 U/L (10-37); BILIRUBIN,TOTAL 0.5 MG/DL (0.1-1.0); BLOOD UREA NITROGEN 76 MG/DL (7-18); BUN/CREATININE RATIO 14.3 (5.4-32.0); CALCIUM 8.3 MG/DL (8.5-10.1); CHLORIDE 97 MMOL/L (99-107); GLUCOSE 185 MG/DL (70-104); PHOSPHORUS 5.4 MG/DL (2.3-4.5); POTASSIUM 3.9 MMOL/L (3.5-5.1); SODIUM 136 MMOL/L (135-145); TOTAL CARBON DIOXIDE 29.1 MMOL/L (24-32); TOTAL PROTEIN 6.4 G/DL (6.4-8.2); eGFR 11 ML/MIN
[2017-05-06] MEDS: amLODIPine 5mg tablet PO SCH (08:33)
[2017-05-06] MEDS: hydrALAZINE 25 MG tablet PO SCH ×2 (08:33→15:10)
[2017-05-06] MEDS: aspirin 81mg tab.chew PO SCH (08:33)
[2017-05-06] MEDS: lactobacillus rhamnosus 10,000 MMU CELLS/CAPSULE PO SCH (08:33)
[2017-05-06] MEDS: carvedilol 6.25mg tablet PO SCH ×2 (08:33→19:31)
[2017-05-06] MEDS: HYDROcodone/acetaminophen 10/325mg tab PO PRN ×2 (08:37→19:33)
[2017-05-06] MEDS: polyethylene glycol 3350 17gm powd pack PO SCH (21:00)
[2017-05-06] MEDS: Insulin Detemir pen SQ SCH (21:00)
[2017-05-07] VITALS (15 sets, daily range): BP systolic 132–177; BP diastolic 56–72
[2017-05-07] MEDS: hydrALAZINE 25 MG tablet PO SCH ×3 (00:33→16:27)
[2017-05-07 05:31] LABS: BASOPHILS # (AUTO) 0.1 X10'3 (0-0.2); BASOPHILS % (AUTO) 0.7 % (0-1); EOSINOPHILS # (AUTO) 0.6 X10'3 (0-0.9); EOSINOPHILS % (AUTO) 8.3 % (0-6); HEMOGLOBIN 9.2 g/dl (14.0-17.9); LYMPHOCYTES # (AUTO) 1.3 X10'3 (1.1-4.8); LYMPHOCYTES % (AUTO) 17.3 % (21-51); MEAN CORPUSCULAR HEMOGLOBIN 28.6 PG (27.0-31.0); MEAN CORPUSCULAR HGB CONC 34.2 % (33.0-36.5); MEAN CORPUSCULAR VOLUME 83.7 FL (78-98); MEAN PLATELET VOLUME 7.4 FL (7.4-10.4); MONOCYTES # (AUTO) 0.9 X10'3 (0-0.9); NEUTROPHILS # (AUTO) 4.6 X10'3 (1.8-7.7); NEUTROPHILS % (AUTO) 61.7 % (42-75); PLATELET COUNT 292 X10'3 (140-440); RED BLOOD COUNT 3.22 X10'6 (4.70-6.10); RED CELL DISTRIBUTION WIDTH 16.5 % (11.5-14.5); WHITE BLOOD COUNT 7.4 X10'3 (4.5-11.0)
[2017-05-07 05:47] LABS: ALANINE AMINOTRANSFERASE 21 U/L (12-78); ALBUMIN 1.9 G/DL (3.4-5.0); ALBUMIN/GLOBULIN RATIO 0.4 (1.1-1.5); ALKALINE PHOSPHATASE 129 IU/L (46-116); ANION GAP 9 (8-16); ASPARTATE AMINO TRANSFERASE 19 U/L (10-37); BILIRUBIN,TOTAL 0.4 MG/DL (0.1-1.0); BLOOD UREA NITROGEN 73 MG/DL (7-18); BUN/CREATININE RATIO 15.5 (5.4-32.0); CALCIUM 8.6 MG/DL (8.5-10.1); CHLORIDE 100 MMOL/L (99-107); GLUCOSE 162 MG/DL (70-104); PHOSPHORUS 5.7 MG/DL (2.3-4.5); SODIUM 142 MMOL/L (135-145); TOTAL CARBON DIOXIDE 32.7 MMOL/L (24-32); TOTAL PROTEIN 6.5 G/DL (6.4-8.2); eGFR 13 ML/MIN
[2017-05-07] MEDS: lactobacillus rhamnosus 10,000 MMU CELLS/CAPSULE PO SCH (07:32)
[2017-05-07] MEDS: aspirin 81mg tab.chew PO SCH (07:32)
[2017-05-07] MEDS: carvedilol 6.25mg tablet PO SCH ×2 (07:32→20:08)
[2017-05-07] MEDS: amLODIPine 5mg tablet PO SCH (07:32)
[2017-05-07] MEDS: HYDROcodone/acetaminophen 5mg/325mg tablet PO PRN (07:38)
[2017-05-07] MEDS ORDERED: DOBUTamine-DoBUTrex 500mg/D5W 250 ML IV SCH (12:50)
[2017-05-07] MEDS: HYDROcodone/acetaminophen 10/325mg tab PO PRN (18:33)
[2017-05-07] MEDS: polyethylene glycol 3350 17gm powd pack PO SCH (20:09)
[2017-05-07] MEDS: Insulin Detemir pen SQ SCH (20:21)
[2017-05-08] MEDS: hydrALAZINE 25 MG tablet PO SCH ×3 (00:07→16:16)
[2017-05-08 03:19] VITALS: BP 139/61
[2017-05-08 06:00] VITALS: BP 146/69
[2017-05-08] MEDS: aspirin 81mg tab.chew PO SCH (07:25)
[2017-05-08] MEDS: carvedilol 6.25mg tablet PO SCH ×3 (07:26→20:13)
[2017-05-08] MEDS: amLODIPine 5mg tablet PO SCH (07:26)
[2017-05-08] MEDS: lactobacillus rhamnosus 10,000 MMU CELLS/CAPSULE PO SCH (07:26)
[2017-05-08 11:00] VITALS: BP 135/66
[2017-05-08 15:00] VITALS: BP 143/65
[2017-05-08] MEDS: HYDROcodone/acetaminophen 10/325mg tab PO PRN (16:15)
[2017-05-08 19:00] VITALS: BP 147/72
[2017-05-08] MEDS: Insulin Detemir pen SQ SCH (20:08)
[2017-05-08] MEDS: polyethylene glycol 3350 17gm powd pack PO SCH (20:13)
[2017-05-08 22:00] VITALS: BP 127/59
[2017-05-09] MEDS: hydrALAZINE 25 MG tablet PO SCH ×3 (00:28→16:22)
[2017-05-09 02:00] VITALS: BP 153/74
[2017-05-09 06:00] VITALS: BP 142/62
[2017-05-09 06:14] LABS: BASOPHILS # (AUTO) 0.1 X10'3 (0-0.2); BASOPHILS % (AUTO) 0.9 % (0-1); EOSINOPHILS # (AUTO) 0.6 X10'3 (0-0.9); HEMATOCRIT 26.8 % (42.0-52.0); LYMPHOCYTES # (AUTO) 1.4 X10'3 (1.1-4.8); LYMPHOCYTES % (AUTO) 19.4 % (21-51); MEAN CORPUSCULAR HEMOGLOBIN 28.4 PG (27.0-31.0); MEAN CORPUSCULAR HGB CONC 33.6 % (33.0-36.5); MEAN CORPUSCULAR VOLUME 84.6 FL (78-98); MEAN PLATELET VOLUME 7.4 FL (7.4-10.4); MONOCYTES # (AUTO) 0.7 X10'3 (0-0.9); MONOCYTES % (AUTO) 9.3 % (2-12); NEUTROPHILS # (AUTO) 4.5 X10'3 (1.8-7.7); NEUTROPHILS % (AUTO) 62.4 % (42-75); PLATELET COUNT 303 X10'3 (140-440); RED BLOOD COUNT 3.17 X10'6 (4.70-6.10); RED CELL DISTRIBUTION WIDTH 16.6 % (11.5-14.5); WHITE BLOOD COUNT 7.2 X10'3 (4.5-11.0)
[2017-05-09 07:02] LABS: ALANINE AMINOTRANSFERASE 24 U/L (12-78); ALBUMIN/GLOBULIN RATIO 0.4 (1.1-1.5); ALKALINE PHOSPHATASE 143 IU/L (46-116); ANION GAP 11 (8-16); ASPARTATE AMINO TRANSFERASE 21 U/L (10-37); BILIRUBIN,TOTAL 0.3 MG/DL (0.1-1.0); BLOOD UREA NITROGEN 75 MG/DL (7-18); BUN/CREATININE RATIO 18.8 (5.4-32.0); CALCIUM 8.7 MG/DL (8.5-10.1); CHLORIDE 102 MMOL/L (99-107); GLUCOSE 157 MG/DL (70-104); PHOSPHORUS 5.8 MG/DL (2.3-4.5); POTASSIUM 4.4 MMOL/L (3.5-5.1); SODIUM 140 MMOL/L (135-145); TOTAL CARBON DIOXIDE 26.6 MMOL/L (24-32); TOTAL PROTEIN 6.6 G/DL (6.4-8.2); eGFR 16 ML/MIN
[2017-05-09] MEDS: amLODIPine 5mg tablet PO SCH (07:35)
[2017-05-09] MEDS: carvedilol 6.25mg tablet PO SCH ×2 (07:35→20:15)
[2017-05-09] MEDS: lactobacillus rhamnosus 10,000 MMU CELLS/CAPSULE PO SCH (07:35)
[2017-05-09] MEDS: aspirin 81mg tab.chew PO SCH (07:35)
[2017-05-09] MEDS: HYDROcodone/acetaminophen 10/325mg tab PO PRN ×3 (07:39→20:28)
[2017-05-09] MEDS: magnesium hydroxide 30ml (MOM) UD suspension PO PRN (10:26)
[2017-05-09 11:00] VITALS: BP 127/57
[2017-05-09 15:00] VITALS: BP 133/57
[2017-05-09 18:30] VITALS: BP 140/69
[2017-05-09] MEDS: Insulin Detemir pen SQ SCH (20:06)
[2017-05-09] MEDS: polyethylene glycol 3350 17gm powd pack PO SCH (20:15)
[2017-05-09 22:00] VITALS: BP 130/68
[2017-05-10] MEDS: hydrALAZINE 25 MG tablet PO SCH ×3 (00:12→16:13)
[2017-05-10 02:00] VITALS: BP 147/71
[2017-05-10 04:55] LABS: BASOPHILS # (AUTO) 0.1 X10'3 (0-0.2); BASOPHILS % (AUTO) 0.8 % (0-1); EOSINOPHILS # (AUTO) 0.6 X10'3 (0-0.9); EOSINOPHILS % (AUTO) 7.7 % (0-6); HEMATOCRIT 26.2 % (42.0-52.0); HEMOGLOBIN 8.8 g/dl (14.0-17.9); LYMPHOCYTES # (AUTO) 1.5 X10'3 (1.1-4.8); LYMPHOCYTES % (AUTO) 20.1 % (21-51); MEAN CORPUSCULAR HEMOGLOBIN 28.4 PG (27.0-31.0); MEAN CORPUSCULAR HGB CONC 33.7 % (33.0-36.5); MEAN CORPUSCULAR VOLUME 84.3 FL (78-98); MEAN PLATELET VOLUME 7.6 FL (7.4-10.4); MONOCYTES # (AUTO) 0.7 X10'3 (0-0.9); MONOCYTES % (AUTO) 9.5 % (2-12); NEUTROPHILS # (AUTO) 4.8 X10'3 (1.8-7.7); NEUTROPHILS % (AUTO) 61.9 % (42-75); PLATELET COUNT 320 X10'3 (140-440); RED BLOOD COUNT 3.11 X10'6 (4.70-6.10); RED CELL DISTRIBUTION WIDTH 16.9 % (11.5-14.5); WHITE BLOOD COUNT 7.7 X10'3 (4.5-11.0)
[2017-05-10 05:13] LABS: ALANINE AMINOTRANSFERASE 27 U/L (12-78); ALBUMIN 2.2 G/DL (3.4-5.0); ALBUMIN/GLOBULIN RATIO 0.5 (1.1-1.5); ALKALINE PHOSPHATASE 152 IU/L (46-116); ANION GAP 9 (8-16); ASPARTATE AMINO TRANSFERASE 26 U/L (10-37); BILIRUBIN,TOTAL 0.3 MG/DL (0.1-1.0); BLOOD UREA NITROGEN 85 MG/DL (7-18); BUN/CREATININE RATIO 20.7 (5.4-32.0); CALCIUM 8.8 MG/DL (8.5-10.1); CHLORIDE 103 MMOL/L (99-107); GLUCOSE 188 MG/DL (70-104); PHOSPHORUS 4.7 MG/DL (2.3-4.5); POTASSIUM 5.2 MMOL/L (3.5-5.1); SODIUM 140 MMOL/L (135-145); TOTAL CARBON DIOXIDE 28.3 MMOL/L (24-32); TOTAL PROTEIN 6.8 G/DL (6.4-8.2); eGFR 15 ML/MIN
[2017-05-10 06:00] VITALS: BP 150/67
[2017-05-10] MEDS: lactobacillus rhamnosus 10,000 MMU CELLS/CAPSULE PO SCH (07:28)
[2017-05-10] MEDS: carvedilol 6.25mg tablet PO SCH ×2 (07:29→20:14)
[2017-05-10] MEDS: amLODIPine 5mg tablet PO SCH (07:29)
[2017-05-10] MEDS: HYDROcodone/acetaminophen 10/325mg tab PO PRN ×3 (07:29→21:12)
[2017-05-10] MEDS: aspirin 81mg tab.chew PO SCH (07:45)
[2017-05-10 11:00] VITALS: BP 130/56
[2017-05-10 15:00] VITALS: BP 141/69
[2017-05-10] MEDS: magnesium hydroxide 30ml (MOM) UD suspension PO PRN (16:14)
[2017-05-10 19:00] VITALS: BP 131/60
[2017-05-10] MEDS: Insulin Detemir pen SQ SCH (21:00)
[2017-05-10] MEDS: polyethylene glycol 3350 17gm powd pack PO SCH (21:12)
[2017-05-10 23:00] VITALS: BP 141/69
[2017-05-11] MEDS: hydrALAZINE 25 MG tablet PO SCH ×4 (00:07→23:58)
[2017-05-11 03:00] VITALS: BP 147/63
[2017-05-11 06:00] VITALS: BP 155/80
[2017-05-11] MEDS: lactobacillus rhamnosus 10,000 MMU CELLS/CAPSULE PO SCH (09:39)
[2017-05-11] MEDS: carvedilol 6.25mg tablet PO SCH ×2 (09:40→20:07)
[2017-05-11] MEDS: amLODIPine 5mg tablet PO SCH (09:40)
[2017-05-11] MEDS: aspirin 81mg tab.chew PO SCH (09:41)
[2017-05-11] MEDS: HYDROcodone/acetaminophen 10/325mg tab PO PRN ×2 (09:49→19:04)
[2017-05-11 11:00] VITALS: BP 125/75
[2017-05-11 11:44] LABS: UREA NITROGEN 24HR,URINE 9.4 GM/24HR (7-20)
[2017-05-11 15:00] VITALS: BP 138/64
[2017-05-11 18:30] VITALS: BP 133/64
[2017-05-11] MEDS: polyethylene glycol 3350 17gm powd pack PO SCH (20:07)
[2017-05-11] MEDS: Insulin Detemir pen SQ SCH (21:04)
[2017-05-11 22:00] VITALS: BP 131/67
[2017-05-12 02:00] VITALS: BP 150/59
[2017-05-12 06:00] VITALS: BP 136/66
[2017-05-12 06:52] LABS: BASOPHILS # (AUTO) 0.1 X10'3 (0-0.2); BASOPHILS % (AUTO) 1.3 % (0-1); EOSINOPHILS # (AUTO) 0.7 X10'3 (0-0.9); EOSINOPHILS % (AUTO) 7.9 % (0-6); HEMOGLOBIN 9.4 g/dl (14.0-17.9); LYMPHOCYTES # (AUTO) 1.2 X10'3 (1.1-4.8); LYMPHOCYTES % (AUTO) 13.8 % (21-51); MEAN CORPUSCULAR HEMOGLOBIN 28.7 PG (27.0-31.0); MEAN CORPUSCULAR HGB CONC 33.5 % (33.0-36.5); MEAN CORPUSCULAR VOLUME 85.7 FL (78-98); MEAN PLATELET VOLUME 7.2 FL (7.4-10.4); MONOCYTES # (AUTO) 0.7 X10'3 (0-0.9); MONOCYTES % (AUTO) 8.1 % (2-12); NEUTROPHILS # (AUTO) 5.9 X10'3 (1.8-7.7); NEUTROPHILS % (AUTO) 68.9 % (42-75); PLATELET COUNT 334 X10'3 (140-440); RED BLOOD COUNT 3.27 X10'6 (4.70-6.10); RED CELL DISTRIBUTION WIDTH 17.1 % (11.5-14.5); WHITE BLOOD COUNT 8.5 X10'3 (4.5-11.0)
[2017-05-12 07:09] LABS: ALANINE AMINOTRANSFERASE 37 U/L (12-78); ALBUMIN 2.5 G/DL (3.4-5.0); ALBUMIN/GLOBULIN RATIO 0.5 (1.1-1.5); ALKALINE PHOSPHATASE 197 IU/L (46-116); ANION GAP 6 (8-16); ASPARTATE AMINO TRANSFERASE 29 U/L (10-37); BILIRUBIN,TOTAL 0.4 MG/DL (0.1-1.0); BLOOD UREA NITROGEN 100 MG/DL (7-18); BUN/CREATININE RATIO 24.4 (5.4-32.0); CHLORIDE 102 MMOL/L (99-107); GLUCOSE 139 MG/DL (70-104); MAGNESIUM 2.9 MG/DL (1.5-2.4); PHOSPHORUS 4.4 MG/DL (2.3-4.5); SODIUM 137 MMOL/L (135-145); TOTAL CARBON DIOXIDE 28.8 MMOL/L (24-32); TOTAL PROTEIN 7.3 G/DL (6.4-8.2); eGFR 15 ML/MIN
[2017-05-12] MEDS: hydrALAZINE 25 MG tablet PO SCH ×3 (08:22→23:57)
[2017-05-12] MEDS: amLODIPine 5mg tablet PO SCH (08:22)
[2017-05-12] MEDS: carvedilol 6.25mg tablet PO SCH ×2 (08:22→19:59)
[2017-05-12] MEDS: lactobacillus rhamnosus 10,000 MMU CELLS/CAPSULE PO SCH (08:22)
[2017-05-12] MEDS: aspirin 81mg tab.chew PO SCH (08:22)
[2017-05-12] MEDS: HYDROcodone/acetaminophen 10/325mg tab PO PRN ×3 (08:41→21:03)
[2017-05-12] MEDS: insulin Lispro (HumaLOG) vial - multi-dose SQ SCH ×2 (09:06→18:56)
[2017-05-12 11:00] VITALS: BP 130/68
[2017-05-12] MEDS: dextrose ORAL solution 15 GM/59 ML bottle PO PRN (12:12)
[2017-05-12 15:00] VITALS: BP 135/87
[2017-05-12 18:30] VITALS: BP 155/72
[2017-05-12] MEDS: polyethylene glycol 3350 17gm powd pack PO SCH (19:59)
[2017-05-12] MEDS: Insulin Detemir pen SQ SCH (21:00)
[2017-05-12 22:00] VITALS: BP 120/53
[2017-05-13] VITALS (7 sets, daily range): BP systolic 130–183; BP diastolic 56–78
[2017-05-13 06:42] LABS: BASOPHILS % (AUTO) 0.2 % (0-1); EOSINOPHILS # (AUTO) 0.7 X10'3 (0-0.9); EOSINOPHILS % (AUTO) 7.8 % (0-6); HEMATOCRIT 27.3 % (42.0-52.0); HEMOGLOBIN 9.2 g/dl (14.0-17.9); LYMPHOCYTES # (AUTO) 1.3 X10'3 (1.1-4.8); LYMPHOCYTES % (AUTO) 15.7 % (21-51); MEAN CORPUSCULAR HEMOGLOBIN 28.8 PG (27.0-31.0); MEAN CORPUSCULAR HGB CONC 33.7 % (33.0-36.5); MEAN CORPUSCULAR VOLUME 85.6 FL (78-98); MEAN PLATELET VOLUME 7.1 FL (7.4-10.4); MONOCYTES # (AUTO) 0.8 X10'3 (0-0.9); MONOCYTES % (AUTO) 9.4 % (2-12); NEUTROPHILS # (AUTO) 5.7 X10'3 (1.8-7.7); NEUTROPHILS % (AUTO) 66.9 % (42-75); PLATELET COUNT 366 X10'3 (140-440); RED BLOOD COUNT 3.18 X10'6 (4.70-6.10); RED CELL DISTRIBUTION WIDTH 17.4 % (11.5-14.5); WHITE BLOOD COUNT 8.5 X10'3 (4.5-11.0)
[2017-05-13 07:04] LABS: ALANINE AMINOTRANSFERASE 46 U/L (12-78); ALBUMIN 2.5 G/DL (3.4-5.0); ALBUMIN/GLOBULIN RATIO 0.5 (1.1-1.5); ALKALINE PHOSPHATASE 243 IU/L (46-116); ANION GAP 9 (8-16); ASPARTATE AMINO TRANSFERASE 37 U/L (10-37); BILIRUBIN,TOTAL 0.5 MG/DL (0.1-1.0); BLOOD UREA NITROGEN 107 MG/DL (7-18); BUN/CREATININE RATIO 23.8 (5.4-32.0); CALCIUM 8.9 MG/DL (8.5-10.1); CHLORIDE 102 MMOL/L (99-107); GLUCOSE 114 MG/DL (70-104); MAGNESIUM 2.7 MG/DL (1.5-2.4); PHOSPHORUS 4.7 MG/DL (2.3-4.5); POTASSIUM 5.8 MMOL/L (3.5-5.1); SODIUM 138 MMOL/L (135-145); TOTAL CARBON DIOXIDE 27.1 MMOL/L (24-32); TOTAL PROTEIN 7.4 G/DL (6.4-8.2); eGFR 14 ML/MIN
[2017-05-13] MEDS ORDERED: sodium polystyrene sulfonate 15gm/60ml oral suspension PO ONE (08:05)
[2017-05-13] MEDS: lactobacillus rhamnosus 10,000 MMU CELLS/CAPSULE PO SCH (08:45)
[2017-05-13] MEDS: hydrALAZINE 25 MG tablet PO SCH ×3 (08:48→23:06)
[2017-05-13] MEDS: aspirin 81mg tab.chew PO SCH (08:48)
[2017-05-13] MEDS: amLODIPine 5mg tablet PO SCH (08:48)
[2017-05-13] MEDS: carvedilol 6.25mg tablet PO SCH ×2 (08:48→19:31)
[2017-05-13] MEDS: insulin Lispro (HumaLOG) vial - multi-dose SQ SCH ×2 (08:51→19:30)
[2017-05-13] MEDS: HYDROcodone/acetaminophen 10/325mg tab PO PRN (08:57)
[2017-05-13] MEDS: DOBUTamine-DoBUTrex 500mg/D5W 250 ML IV SCH (15:15)
[2017-05-13] MEDS ORDERED: metoclopramide 5 mg/ml inj IV ONE (16:25)
[2017-05-13] MEDS ORDERED: glycerin ADULT rectal suppository RC ONE (16:25)
[2017-05-13] MEDS ORDERED: glycerin ADULT rectal suppository RC PRN (18:00)
[2017-05-13] MEDS: lactulose 20gm/30ml cup PO SCH (20:00)
[2017-05-13] MEDS: polyethylene glycol 3350 17gm powd pack PO SCH (20:37)
[2017-05-13] MEDS: Insulin Detemir pen SQ SCH (20:52)
[2017-05-14] VITALS (9 sets, daily range): BP systolic 146–169; BP diastolic 61–87
[2017-05-14] MEDS: lactulose 20gm/30ml cup PO SCH ×4 (02:00→19:34)
[2017-05-14] MEDS ORDERED: hydrALAZINE 20mg/ml inj. IV STA (05:21)
[2017-05-14 06:55] LABS: ALANINE AMINOTRANSFERASE 49 U/L (12-78); ALBUMIN 2.4 G/DL (3.4-5.0); ALBUMIN/GLOBULIN RATIO 0.5 (1.1-1.5); ALKALINE PHOSPHATASE 261 IU/L (46-116); ANION GAP 12 (8-16); ASPARTATE AMINO TRANSFERASE 41 U/L (10-37); BILIRUBIN,TOTAL 0.6 MG/DL (0.1-1.0); BLOOD UREA NITROGEN 100 MG/DL (7-18); CALCIUM 8.8 MG/DL (8.5-10.1); CHLORIDE 102 MMOL/L (99-107); GLUCOSE 102 MG/DL (70-104); POTASSIUM 4.9 MMOL/L (3.5-5.1); SODIUM 139 MMOL/L (135-145); TOTAL CARBON DIOXIDE 25.5 MMOL/L (24-32); TOTAL PROTEIN 7.3 G/DL (6.4-8.2); eGFR 16 ML/MIN
[2017-05-14] MEDS: lactobacillus rhamnosus 10,000 MMU CELLS/CAPSULE PO SCH (07:58)
[2017-05-14] MEDS: hydrALAZINE 25 MG tablet PO SCH ×2 (07:59→16:00)
[2017-05-14] MEDS: aspirin 81mg tab.chew PO SCH (07:59)
[2017-05-14] MEDS: carvedilol 6.25mg tablet PO SCH ×2 (07:59→19:32)
[2017-05-14] MEDS: amLODIPine 5mg tablet PO SCH (07:59)
[2017-05-14] MEDS: HYDROcodone/acetaminophen 10/325mg tab PO PRN ×3 (08:16→21:28)
[2017-05-14] MEDS: insulin Lispro (HumaLOG) vial - multi-dose SQ SCH (19:27)
[2017-05-14] MEDS: polyethylene glycol 3350 17gm powd pack PO SCH (21:28)
[2017-05-14] MEDS: Insulin Detemir pen SQ SCH (21:33)
[2017-05-15] VITALS (9 sets, daily range): BP systolic 125–158; BP diastolic 54–71
[2017-05-15] MEDS: hydrALAZINE 25 MG tablet PO SCH ×3 (00:08→15:15)
[2017-05-15] MEDS: lactulose 20gm/30ml cup PO SCH ×4 (02:00→18:57)
[2017-05-15 05:08] LABS: BASOPHILS # (AUTO) 0.1 X10'3 (0-0.2); BASOPHILS % (AUTO) 0.9 % (0-1); EOSINOPHILS # (AUTO) 0.7 X10'3 (0-0.9); EOSINOPHILS % (AUTO) 8.3 % (0-6); HEMOGLOBIN 8.8 g/dl (14.0-17.9); LYMPHOCYTES # (AUTO) 1.2 X10'3 (1.1-4.8); LYMPHOCYTES % (AUTO) 14.8 % (21-51); MEAN CORPUSCULAR HEMOGLOBIN 28.9 PG (27.0-31.0); MEAN CORPUSCULAR HGB CONC 33.8 % (33.0-36.5); MEAN CORPUSCULAR VOLUME 85.5 FL (78-98); MEAN PLATELET VOLUME 7.8 FL (7.4-10.4); MONOCYTES # (AUTO) 0.9 X10'3 (0-0.9); MONOCYTES % (AUTO) 11.5 % (2-12); NEUTROPHILS # (AUTO) 5.2 X10'3 (1.8-7.7); NEUTROPHILS % (AUTO) 64.5 % (42-75); PLATELET COUNT 384 X10'3 (140-440); RED BLOOD COUNT 3.04 X10'6 (4.70-6.10); RED CELL DISTRIBUTION WIDTH 17.6 % (11.5-14.5); WHITE BLOOD COUNT 8.1 X10'3 (4.5-11.0)
[2017-05-15 05:26] LABS: ALANINE AMINOTRANSFERASE 42 U/L (12-78); ALBUMIN 2.2 G/DL (3.4-5.0); ALBUMIN/GLOBULIN RATIO 0.5 (1.1-1.5); ALKALINE PHOSPHATASE 226 IU/L (46-116); ANION GAP 11 (8-16); ASPARTATE AMINO TRANSFERASE 33 U/L (10-37); BILIRUBIN,TOTAL 0.5 MG/DL (0.1-1.0); BLOOD UREA NITROGEN 99 MG/DL (7-18); BUN/CREATININE RATIO 28.4 (5.4-32.0); CALCIUM 8.7 MG/DL (8.5-10.1); CHLORIDE 103 MMOL/L (99-107); CREATININE 3.49 MG/DL (0.60-1.10); GLUCOSE 69 MG/DL (70-104); POTASSIUM 4.6 MMOL/L (3.5-5.1); SODIUM 141 MMOL/L (135-145); TOTAL CARBON DIOXIDE 26.7 MMOL/L (24-32); TOTAL PROTEIN 6.9 G/DL (6.4-8.2); eGFR 18 ML/MIN
[2017-05-15] MEDS: carvedilol 6.25mg tablet PO SCH ×2 (07:34→18:56)
[2017-05-15] MEDS: lactobacillus rhamnosus 10,000 MMU CELLS/CAPSULE PO SCH (07:34)
[2017-05-15] MEDS: amLODIPine 5mg tablet PO SCH (07:34)
[2017-05-15] MEDS: aspirin 81mg tab.chew PO SCH (07:34)
[2017-05-15] MEDS: HYDROcodone/acetaminophen 10/325mg tab PO PRN ×2 (07:39→18:56)
[2017-05-15] MEDS: insulin Lispro (HumaLOG) vial - multi-dose SQ SCH ×3 (08:37→19:00)
[2017-05-15] MEDS: DOBUTamine-DoBUTrex 500mg/D5W 250 ML IV SCH (15:45)
[2017-05-15] MEDS: Insulin Detemir pen SQ SCH (21:00)
[2017-05-15] MEDS: polyethylene glycol 3350 17gm powd pack PO SCH (21:29)
[2017-05-16] VITALS (12 sets, daily range): BP systolic 137–169; BP diastolic 57–77
[2017-05-16] MEDS: hydrALAZINE 25 MG tablet PO SCH ×3 (00:52→17:01)
[2017-05-16] MEDS: lactulose 20gm/30ml cup PO SCH ×3 (02:00→09:43)
[2017-05-16 05:48] LABS: BASOPHILS # (AUTO) 0.1 X10'3 (0-0.2); BASOPHILS % (AUTO) 0.8 % (0-1); EOSINOPHILS # (AUTO) 0.7 X10'3 (0-0.9); EOSINOPHILS % (AUTO) 7.9 % (0-6); HEMATOCRIT 26.4 % (42.0-52.0); HEMOGLOBIN 8.9 g/dl (14.0-17.9); LYMPHOCYTES # (AUTO) 1.3 X10'3 (1.1-4.8); LYMPHOCYTES % (AUTO) 15.7 % (21-51); MEAN CORPUSCULAR HEMOGLOBIN 28.8 PG (27.0-31.0); MEAN CORPUSCULAR HGB CONC 33.6 % (33.0-36.5); MEAN CORPUSCULAR VOLUME 85.8 FL (78-98); MEAN PLATELET VOLUME 7.6 FL (7.4-10.4); MONOCYTES # (AUTO) 0.9 X10'3 (0-0.9); MONOCYTES % (AUTO) 10.2 % (2-12); NEUTROPHILS # (AUTO) 5.5 X10'3 (1.8-7.7); NEUTROPHILS % (AUTO) 65.4 % (42-75); PLATELET COUNT 427 X10'3 (140-440); RED BLOOD COUNT 3.08 X10'6 (4.70-6.10); RED CELL DISTRIBUTION WIDTH 17.5 % (11.5-14.5); WHITE BLOOD COUNT 8.4 X10'3 (4.5-11.0)
[2017-05-16 06:20] LABS: ALANINE AMINOTRANSFERASE 40 U/L (12-78); ALBUMIN 2.4 G/DL (3.4-5.0); ALBUMIN/GLOBULIN RATIO 0.5 (1.1-1.5); ALKALINE PHOSPHATASE 241 IU/L (46-116); ANION GAP 14 (8-16); ASPARTATE AMINO TRANSFERASE 21 U/L (10-37); BILIRUBIN,TOTAL 0.5 MG/DL (0.1-1.0); BLOOD UREA NITROGEN 100 MG/DL (7-18); BUN/CREATININE RATIO 27.4 (5.4-32.0); CALCIUM 8.7 MG/DL (8.5-10.1); CHLORIDE 103 MMOL/L (99-107); CREATININE 3.65 MG/DL (0.60-1.10); GLUCOSE 113 MG/DL (70-104); POTASSIUM 4.7 MMOL/L (3.5-5.1); SODIUM 142 MMOL/L (135-145); TOTAL CARBON DIOXIDE 25.2 MMOL/L (24-32); TOTAL PROTEIN 7.1 G/DL (6.4-8.2); eGFR 17 ML/MIN
[2017-05-16] MEDS: carvedilol 6.25mg tablet PO SCH ×2 (09:43→19:59)
[2017-05-16] MEDS: lactobacillus rhamnosus 10,000 MMU CELLS/CAPSULE PO SCH (09:43)
[2017-05-16] MEDS: aspirin 81mg tab.chew PO SCH (09:43)
[2017-05-16] MEDS: amLODIPine 5mg tablet PO SCH (09:44)
[2017-05-16] MEDS: insulin Lispro (HumaLOG) vial - multi-dose SQ SCH (10:10)
[2017-05-16] MEDS: HYDROcodone/acetaminophen 10/325mg tab PO PRN ×2 (14:07→19:58)
[2017-05-16] MEDS: polyethylene glycol 3350 17gm powd pack PO SCH (19:59)
[2017-05-16] MEDS: Insulin Detemir pen SQ SCH (21:55)
[2017-05-17] VITALS (7 sets, daily range): BP systolic 126–154; BP diastolic 53–74
[2017-05-17] MEDS: hydrALAZINE 25 MG tablet PO SCH ×3 (00:08→16:57)
[2017-05-17 05:59] LABS: BASOPHILS # (AUTO) 0.1 X10'3 (0-0.2); BASOPHILS % (AUTO) 0.9 % (0-1); EOSINOPHILS # (AUTO) 0.7 X10'3 (0-0.9); EOSINOPHILS % (AUTO) 8.1 % (0-6); HEMATOCRIT 24.7 % (42.0-52.0); HEMOGLOBIN 8.6 g/dl (14.0-17.9); LYMPHOCYTES # (AUTO) 1.4 X10'3 (1.1-4.8); LYMPHOCYTES % (AUTO) 16.4 % (21-51); MEAN CORPUSCULAR HEMOGLOBIN 29.5 PG (27.0-31.0); MEAN CORPUSCULAR HGB CONC 34.9 % (33.0-36.5); MEAN CORPUSCULAR VOLUME 84.6 FL (78-98); MEAN PLATELET VOLUME 7.5 FL (7.4-10.4); MONOCYTES # (AUTO) 0.9 X10'3 (0-0.9); MONOCYTES % (AUTO) 11.4 % (2-12); NEUTROPHILS # (AUTO) 5.2 X10'3 (1.8-7.7); NEUTROPHILS % (AUTO) 63.2 % (42-75); PLATELET COUNT 388 X10'3 (140-440); RED BLOOD COUNT 2.93 X10'6 (4.70-6.10); RED CELL DISTRIBUTION WIDTH 17.3 % (11.5-14.5); WHITE BLOOD COUNT 8.3 X10'3 (4.5-11.0)
[2017-05-17 06:35] LABS: ALANINE AMINOTRANSFERASE 33 U/L (12-78); ALBUMIN 2.3 G/DL (3.4-5.0); ALBUMIN/GLOBULIN RATIO 0.5 (1.1-1.5); ALKALINE PHOSPHATASE 239 IU/L (46-116); ANION GAP 10 (8-16); ASPARTATE AMINO TRANSFERASE 23 U/L (10-37); BILIRUBIN,TOTAL 0.4 MG/DL (0.1-1.0); BLOOD UREA NITROGEN 101 MG/DL (7-18); BUN/CREATININE RATIO 25.6 (5.4-32.0); CALCIUM 8.8 MG/DL (8.5-10.1); CHLORIDE 102 MMOL/L (99-107); CREATININE 3.95 MG/DL (0.60-1.10); GLUCOSE 120 MG/DL (70-104); POTASSIUM 4.8 MMOL/L (3.5-5.1); SODIUM 139 MMOL/L (135-145); TOTAL CARBON DIOXIDE 27.1 MMOL/L (24-32); TOTAL PROTEIN 7.2 G/DL (6.4-8.2); eGFR 16 ML/MIN
[2017-05-17] MEDS: lactobacillus rhamnosus 10,000 MMU CELLS/CAPSULE PO SCH (07:32)
[2017-05-17] MEDS: aspirin 81mg tab.chew PO SCH (07:33)
[2017-05-17] MEDS: amLODIPine 5mg tablet PO SCH (07:33)
[2017-05-17] MEDS: carvedilol 6.25mg tablet PO SCH ×2 (07:33→20:10)
[2017-05-17] MEDS: HYDROcodone/acetaminophen 10/325mg tab PO PRN ×3 (07:38→20:40)
[2017-05-17] MEDS: insulin Lispro (HumaLOG) vial - multi-dose SQ SCH (13:46)
[2017-05-17] MEDS: polyethylene glycol 3350 17gm powd pack PO SCH (20:09)
[2017-05-17] MEDS: Insulin Detemir pen SQ SCH (20:28)
[2017-05-18] MEDS: hydrALAZINE 25 MG tablet PO SCH ×3 (00:39→15:49)
[2017-05-18 03:00] VITALS: BP 132/64
[2017-05-18 05:34] LABS: BASOPHILS # (AUTO) 0.1 X10'3 (0-0.2); BASOPHILS % (AUTO) 0.9 % (0-1); EOSINOPHILS # (AUTO) 0.6 X10'3 (0-0.9); EOSINOPHILS % (AUTO) 7.9 % (0-6); HEMATOCRIT 24.5 % (42.0-52.0); HEMOGLOBIN 8.5 g/dl (14.0-17.9); LYMPHOCYTES # (AUTO) 1.4 X10'3 (1.1-4.8); LYMPHOCYTES % (AUTO) 19.5 % (21-51); MEAN CORPUSCULAR HGB CONC 34.7 % (33.0-36.5); MEAN CORPUSCULAR VOLUME 83.6 FL (78-98); MEAN PLATELET VOLUME 7.4 FL (7.4-10.4); MONOCYTES # (AUTO) 0.8 X10'3 (0-0.9); MONOCYTES % (AUTO) 10.7 % (2-12); NEUTROPHILS # (AUTO) 4.4 X10'3 (1.8-7.7); PLATELET COUNT 381 X10'3 (140-440); RED BLOOD COUNT 2.94 X10'6 (4.70-6.10); RED CELL DISTRIBUTION WIDTH 17.2 % (11.5-14.5); WHITE BLOOD COUNT 7.3 X10'3 (4.5-11.0)
[2017-05-18 06:20] LABS: ALANINE AMINOTRANSFERASE 33 U/L (12-78); ALBUMIN 2.4 G/DL (3.4-5.0); ALBUMIN/GLOBULIN RATIO 0.5 (1.1-1.5); ALKALINE PHOSPHATASE 255 IU/L (46-116); ANION GAP 13 (8-16); ASPARTATE AMINO TRANSFERASE 26 U/L (10-37); BILIRUBIN,TOTAL 0.4 MG/DL (0.1-1.0); BLOOD UREA NITROGEN 110 MG/DL (7-18); BUN/CREATININE RATIO 30.1 (5.4-32.0); CALCIUM 8.9 MG/DL (8.5-10.1); CHLORIDE 101 MMOL/L (99-107); CREATININE 3.65 MG/DL (0.60-1.10); GLUCOSE 80 MG/DL (70-104); POTASSIUM 5.1 MMOL/L (3.5-5.1); SODIUM 138 MMOL/L (135-145); TOTAL CARBON DIOXIDE 24.1 MMOL/L (24-32); TOTAL PROTEIN 7.3 G/DL (6.4-8.2); eGFR 17 ML/MIN
[2017-05-18 07:00] VITALS: BP 145/65
[2017-05-18] MEDS: aspirin 81mg tab.chew PO SCH (07:49)
[2017-05-18] MEDS: amLODIPine 5mg tablet PO SCH (07:49)
[2017-05-18] MEDS: lactobacillus rhamnosus 10,000 MMU CELLS/CAPSULE PO SCH (07:49)
[2017-05-18] MEDS: carvedilol 6.25mg tablet PO SCH ×2 (07:49→19:37)
[2017-05-18] MEDS: HYDROcodone/acetaminophen 10/325mg tab PO PRN ×2 (07:57→15:56)
[2017-05-18 11:00] VITALS: BP 122/51
[2017-05-18 15:00] VITALS: BP 139/66
[2017-05-18 18:30] VITALS: BP 146/76
[2017-05-18] MEDS: insulin Lispro (HumaLOG) vial - multi-dose SQ SCH (19:35)
[2017-05-18] MEDS: polyethylene glycol 3350 17gm powd pack PO SCH (19:45)
[2017-05-18] MEDS: Insulin Detemir pen SQ SCH (21:00)
[2017-05-18] MEDS: dextrose ORAL solution 15 GM/59 ML bottle PO PRN (21:57)
[2017-05-18 22:00] VITALS: BP 138/67
[2017-05-19] MEDS: hydrALAZINE 25 MG tablet PO SCH ×4 (01:23→23:29)
[2017-05-19 02:00] VITALS: BP 166/79
[2017-05-19 07:00] VITALS: BP 149/70
[2017-05-19] MEDS: carvedilol 6.25mg tablet PO SCH ×2 (07:28→20:27)
[2017-05-19] MEDS: amLODIPine 5mg tablet PO SCH (07:28)
[2017-05-19] MEDS: lactobacillus rhamnosus 10,000 MMU CELLS/CAPSULE PO SCH (07:28)
[2017-05-19] MEDS: aspirin 81mg tab.chew PO SCH (07:28)
[2017-05-19 07:33] LABS: BASOPHILS # (AUTO) 0.1 X10'3 (0-0.2); BASOPHILS % (AUTO) 0.8 % (0-1); EOSINOPHILS # (AUTO) 0.5 X10'3 (0-0.9); EOSINOPHILS % (AUTO) 7.3 % (0-6); HEMATOCRIT 27.7 % (42.0-52.0); HEMOGLOBIN 9.6 g/dl (14.0-17.9); LYMPHOCYTES % (AUTO) 15.1 % (21-51); MEAN CORPUSCULAR HEMOGLOBIN 29.1 PG (27.0-31.0); MEAN CORPUSCULAR HGB CONC 34.5 % (33.0-36.5); MEAN CORPUSCULAR VOLUME 84.2 FL (78-98); MEAN PLATELET VOLUME 7.5 FL (7.4-10.4); MONOCYTES # (AUTO) 0.6 X10'3 (0-0.9); MONOCYTES % (AUTO) 9.5 % (2-12); NEUTROPHILS # (AUTO) 4.5 X10'3 (1.8-7.7); NEUTROPHILS % (AUTO) 67.3 % (42-75); PLATELET COUNT 388 X10'3 (140-440); RED BLOOD COUNT 3.29 X10'6 (4.70-6.10); RED CELL DISTRIBUTION WIDTH 17.1 % (11.5-14.5); WHITE BLOOD COUNT 6.8 X10'3 (4.5-11.0)
[2017-05-19] MEDS: HYDROcodone/acetaminophen 10/325mg tab PO PRN ×3 (07:33→20:30)
[2017-05-19 07:41] LABS: ALANINE AMINOTRANSFERASE 43 U/L (12-78); ALBUMIN 2.6 G/DL (3.4-5.0); ALBUMIN/GLOBULIN RATIO 0.5 (1.1-1.5); ALKALINE PHOSPHATASE 281 IU/L (46-116); ANION GAP 12 (8-16); ASPARTATE AMINO TRANSFERASE 29 U/L (10-37); BILIRUBIN,TOTAL 0.5 MG/DL (0.1-1.0); BLOOD UREA NITROGEN 110 MG/DL (7-18); BUN/CREATININE RATIO 30.1 (5.4-32.0); CHLORIDE 100 MMOL/L (99-107); CREATININE 3.65 MG/DL (0.60-1.10); GLUCOSE 146 MG/DL (70-104); POTASSIUM 5.2 MMOL/L (3.5-5.1); SODIUM 136 MMOL/L (135-145); TOTAL PROTEIN 7.5 G/DL (6.4-8.2); eGFR 17 ML/MIN
[2017-05-19 11:00] VITALS: BP 138/68
[2017-05-19 15:00] VITALS: BP 150/75
[2017-05-19 19:00] VITALS: BP 131/71
[2017-05-19] MEDS: polyethylene glycol 3350 17gm powd pack PO SCH (20:26)
[2017-05-19] MEDS: Insulin Detemir pen SQ SCH (21:15)
[2017-05-19] MEDS: pantoprazole 40 MG vial IV SCH (22:28)
[2017-05-19 23:00] VITALS: BP 142/64
[2017-05-20] MEDS: HYDROcodone/acetaminophen 10/325mg tab PO PRN ×2 (00:47→20:42)
[2017-05-20 03:00] VITALS: BP 141/77
[2017-05-20 04:55] LABS: BASOPHILS # (AUTO) 0.1 X10'3 (0-0.2); BASOPHILS % (AUTO) 1.1 % (0-1); EOSINOPHILS # (AUTO) 0.4 X10'3 (0-0.9); EOSINOPHILS % (AUTO) 6.4 % (0-6); HEMATOCRIT 25.6 % (42.0-52.0); HEMOGLOBIN 8.6 g/dl (14.0-17.9); LYMPHOCYTES # (AUTO) 1.3 X10'3 (1.1-4.8); LYMPHOCYTES % (AUTO) 20.2 % (21-51); MEAN CORPUSCULAR HEMOGLOBIN 28.5 PG (27.0-31.0); MEAN CORPUSCULAR HGB CONC 33.6 % (33.0-36.5); MEAN CORPUSCULAR VOLUME 84.7 FL (78-98); MEAN PLATELET VOLUME 7.6 FL (7.4-10.4); MONOCYTES # (AUTO) 0.6 X10'3 (0-0.9); MONOCYTES % (AUTO) 9.5 % (2-12); NEUTROPHILS % (AUTO) 62.8 % (42-75); PLATELET COUNT 393 X10'3 (140-440); RED BLOOD COUNT 3.02 X10'6 (4.70-6.10); WHITE BLOOD COUNT 6.3 X10'3 (4.5-11.0)
[2017-05-20 05:18] LABS: ALANINE AMINOTRANSFERASE 43 U/L (12-78); ALBUMIN 2.5 G/DL (3.4-5.0); ALBUMIN/GLOBULIN RATIO 0.5 (1.1-1.5); ALKALINE PHOSPHATASE 269 IU/L (46-116); ANION GAP 10 (8-16); ASPARTATE AMINO TRANSFERASE 28 U/L (10-37); BILIRUBIN,TOTAL 0.5 MG/DL (0.1-1.0); BLOOD UREA NITROGEN 120 MG/DL (7-18); CALCIUM 8.7 MG/DL (8.5-10.1); CHLORIDE 100 MMOL/L (99-107); CREATININE 4.29 MG/DL (0.60-1.10); GLUCOSE 128 MG/DL (70-104); POTASSIUM 5.5 MMOL/L (3.5-5.1); SODIUM 135 MMOL/L (135-145); TOTAL CARBON DIOXIDE 25.5 MMOL/L (24-32); TOTAL PROTEIN 7.4 G/DL (6.4-8.2); eGFR 14 ML/MIN
[2017-05-20 07:00] VITALS: BP 154/72
[2017-05-20] MEDS: hydrALAZINE 25 MG tablet PO SCH ×2 (07:20→15:49)
[2017-05-20] MEDS: lactobacillus rhamnosus 10,000 MMU CELLS/CAPSULE PO SCH (07:20)
[2017-05-20] MEDS: carvedilol 6.25mg tablet PO SCH ×2 (07:20→20:42)
[2017-05-20] MEDS: amLODIPine 5mg tablet PO SCH (07:20)
[2017-05-20] MEDS: pantoprazole 40 MG vial IV SCH ×2 (07:21→07:42)
[2017-05-20] MEDS: aspirin 81mg tab.chew PO SCH (07:28)
[2017-05-20] MEDS: HYDROcodone/acetaminophen 5mg/325mg tablet PO PRN ×2 (07:43→15:59)
[2017-05-20] MEDS ORDERED: normal saline 1000ml 1,000 ML IVB ONE (09:54)
[2017-05-20] MEDS: normal saline 1000ml 1,000 ML IV SCH (10:16)
[2017-05-20 11:00] VITALS: BP 126/63
[2017-05-20 15:00] VITALS: BP 134/70
[2017-05-20 19:00] VITALS: BP 159/87
[2017-05-20] MEDS: polyethylene glycol 3350 17gm powd pack PO SCH (20:42)
[2017-05-20] MEDS: Insulin Detemir pen SQ SCH (21:02)
[2017-05-20 23:00] VITALS: BP 132/62
[2017-05-21] MEDS: hydrALAZINE 25 MG tablet PO SCH ×3 (00:25→16:13)
[2017-05-21 03:00] VITALS: BP 143/79
[2017-05-21 05:25] LABS: BASOPHILS # (AUTO) 0.1 X10'3 (0-0.2); BASOPHILS % (AUTO) 1.3 % (0-1); EOSINOPHILS # (AUTO) 0.5 X10'3 (0-0.9); EOSINOPHILS % (AUTO) 7.3 % (0-6); HEMATOCRIT 24.9 % (42.0-52.0); HEMOGLOBIN 8.6 g/dl (14.0-17.9); LYMPHOCYTES # (AUTO) 1.2 X10'3 (1.1-4.8); LYMPHOCYTES % (AUTO) 18.6 % (21-51); MEAN CORPUSCULAR HEMOGLOBIN 29.1 PG (27.0-31.0); MEAN CORPUSCULAR HGB CONC 34.6 % (33.0-36.5); MEAN CORPUSCULAR VOLUME 84.1 FL (78-98); MEAN PLATELET VOLUME 7.7 FL (7.4-10.4); MONOCYTES # (AUTO) 0.5 X10'3 (0-0.9); MONOCYTES % (AUTO) 8.7 % (2-12); NEUTROPHILS % (AUTO) 64.1 % (42-75); PLATELET COUNT 365 X10'3 (140-440); RED BLOOD COUNT 2.96 X10'6 (4.70-6.10); RED CELL DISTRIBUTION WIDTH 16.6 % (11.5-14.5); WHITE BLOOD COUNT 6.2 X10'3 (4.5-11.0)
[2017-05-21] MEDS: normal saline 1000ml 1,000 ML IV SCH (05:46)
[2017-05-21 06:00] VITALS: BP 153/65
[2017-05-21 06:09] LABS: ALANINE AMINOTRANSFERASE 38 U/L (12-78); ALBUMIN 2.5 G/DL (3.4-5.0); ALBUMIN/GLOBULIN RATIO 0.5 (1.1-1.5); ALKALINE PHOSPHATASE 268 IU/L (46-116); ANION GAP 12 (8-16); ASPARTATE AMINO TRANSFERASE 28 U/L (10-37); BILIRUBIN,TOTAL 0.4 MG/DL (0.1-1.0); BLOOD UREA NITROGEN 113 MG/DL (7-18); BUN/CREATININE RATIO 29.9 (5.4-32.0); CALCIUM 8.9 MG/DL (8.5-10.1); CHLORIDE 102 MMOL/L (99-107); CREATININE 3.78 MG/DL (0.60-1.10); GLUCOSE 82 MG/DL (70-104); POTASSIUM 5.6 MMOL/L (3.5-5.1); SODIUM 136 MMOL/L (135-145); TOTAL CARBON DIOXIDE 22.4 MMOL/L (24-32); TOTAL PROTEIN 7.3 G/DL (6.4-8.2); eGFR 17 ML/MIN
[2017-05-21] MEDS: lactobacillus rhamnosus 10,000 MMU CELLS/CAPSULE PO SCH (07:14)
[2017-05-21] MEDS: HYDROcodone/acetaminophen 10/325mg tab PO PRN ×2 (07:15→19:47)
[2017-05-21] MEDS: amLODIPine 5mg tablet PO SCH (07:16)
[2017-05-21] MEDS: carvedilol 6.25mg tablet PO SCH ×2 (07:16→19:46)
[2017-05-21] MEDS: aspirin 81mg tab.chew PO SCH (07:19)
[2017-05-21 11:00] VITALS: BP 140/70
[2017-05-21 15:00] VITALS: BP 150/65
[2017-05-21 19:30] VITALS: BP 170/82
[2017-05-21] MEDS: polyethylene glycol 3350 17gm powd pack PO SCH ×2 (21:44→22:05)
[2017-05-21] MEDS ORDERED: insulin glargine (Lantus) pen - multi-dose SQ SCH (21:49)
[2017-05-21] MEDS: insulin glargine (Lantus) pen - multi-dose SQ SCH (22:08)
[2017-05-22] VITALS: BP 160/85
[2017-05-22] MEDS: hydrALAZINE 25 MG tablet PO SCH ×3 (00:23→17:03)
[2017-05-22] MEDS: HYDROcodone/acetaminophen 10/325mg tab PO PRN ×3 (00:24→19:39)
[2017-05-22] MEDS: normal saline 1000ml 1,000 ML IV SCH (00:25)
[2017-05-22 07:00] VITALS: BP 160/74
[2017-05-22] MEDS: amLODIPine 5mg tablet PO SCH (08:41)
[2017-05-22] MEDS: carvedilol 6.25mg tablet PO SCH ×2 (08:41→19:38)
[2017-05-22] MEDS: aspirin 81mg tab.chew PO SCH (08:41)
[2017-05-22] MEDS: lactobacillus rhamnosus 10,000 MMU CELLS/CAPSULE PO SCH (08:42)
[2017-05-22 10:42] LABS: ALANINE AMINOTRANSFERASE 32 U/L (12-78); ALBUMIN 2.4 G/DL (3.4-5.0); ALBUMIN/GLOBULIN RATIO 0.5 (1.1-1.5); ALKALINE PHOSPHATASE 256 IU/L (46-116); ANION GAP 10 (8-16); ASPARTATE AMINO TRANSFERASE 28 U/L (10-37); BILIRUBIN,TOTAL 0.4 MG/DL (0.1-1.0); BLOOD UREA NITROGEN 106 MG/DL (7-18); BUN/CREATININE RATIO 31.5 (5.4-32.0); CALCIUM 8.5 MG/DL (8.5-10.1); CHLORIDE 104 MMOL/L (99-107); CREATININE 3.36 MG/DL (0.60-1.10); GLUCOSE 167 MG/DL (70-104); MAGNESIUM 2.2 MG/DL (1.5-2.4); PHOSPHORUS 4.8 MG/DL (2.3-4.5); POTASSIUM 5.7 MMOL/L (3.5-5.1); SODIUM 136 MMOL/L (135-145); TOTAL CARBON DIOXIDE 21.8 MMOL/L (24-32); TOTAL PROTEIN 6.9 G/DL (6.4-8.2); eGFR 19 ML/MIN
[2017-05-22 18:00] VITALS: BP 163/78
[2017-05-22] MEDS ORDERED: sodium polystyrene sulfonate 15gm/60ml oral suspension PO ONE (20:40)
[2017-05-22] MEDS: insulin glargine (Lantus) pen - multi-dose SQ SCH (21:42)
[2017-05-23] VITALS: BP 162/86
[2017-05-23] MEDS: hydrALAZINE 25 MG tablet PO SCH ×4 (00:07→23:33)
[2017-05-23 06:33] LABS: ALANINE AMINOTRANSFERASE 42 U/L (12-78); ALBUMIN 2.5 G/DL (3.4-5.0); ALBUMIN/GLOBULIN RATIO 0.5 (1.1-1.5); ALKALINE PHOSPHATASE 261 IU/L (46-116); ANION GAP 13 (8-16); ASPARTATE AMINO TRANSFERASE 29 U/L (10-37); BILIRUBIN,TOTAL 0.4 MG/DL (0.1-1.0); BLOOD UREA NITROGEN 116 MG/DL (7-18); BUN/CREATININE RATIO 31.6 (5.4-32.0); CALCIUM 8.7 MG/DL (8.5-10.1); CHLORIDE 103 MMOL/L (99-107); CREATININE 3.67 MG/DL (0.60-1.10); GLUCOSE 99 MG/DL (70-104); MAGNESIUM 2.3 MG/DL (1.5-2.4); PHOSPHORUS 4.7 MG/DL (2.3-4.5); POTASSIUM 5.4 MMOL/L (3.5-5.1); SODIUM 137 MMOL/L (135-145); TOTAL CARBON DIOXIDE 21.5 MMOL/L (24-32); TOTAL PROTEIN 7.1 G/DL (6.4-8.2); eGFR 17 ML/MIN
[2017-05-23 07:15] VITALS: BP 121/73
[2017-05-23] MEDS: carvedilol 6.25mg tablet PO SCH ×2 (09:04→21:00)
[2017-05-23] MEDS: lactobacillus rhamnosus 10,000 MMU CELLS/CAPSULE PO SCH (09:04)
[2017-05-23] MEDS: HYDROcodone/acetaminophen 10/325mg tab PO PRN (09:05)
[2017-05-23] MEDS: aspirin 81mg tab.chew PO SCH (09:05)
[2017-05-23] MEDS: amLODIPine 5mg tablet PO SCH (09:05)
[2017-05-23 11:01] VITALS: BP 136/65
[2017-05-23] MEDS ORDERED: sodium polystyrene sulfonate 15gm/60ml oral suspension PO ONE (14:05)
[2017-05-23 18:00] VITALS: BP 155/72
[2017-05-23] MEDS: polyethylene glycol 3350 17gm powd pack PO SCH (21:00)
[2017-05-23] MEDS: insulin glargine (Lantus) pen - multi-dose SQ SCH (21:06)
[2017-05-23] MEDS: HYDROcodone/acetaminophen 5mg/325mg tablet PO PRN (21:10)
[2017-05-24] VITALS: BP 145/69
[2017-05-24 06:18] LABS: BASOPHILS # (AUTO) 0.1 X10'3 (0-0.2); BASOPHILS % (AUTO) 1.1 % (0-1); EOSINOPHILS # (AUTO) 0.4 X10'3 (0-0.9); EOSINOPHILS % (AUTO) 5.9 % (0-6); HEMATOCRIT 23.4 % (42.0-52.0); HEMOGLOBIN 7.9 g/dl (14.0-17.9); LYMPHOCYTES # (AUTO) 1.2 X10'3 (1.1-4.8); LYMPHOCYTES % (AUTO) 19.9 % (21-51); MEAN CORPUSCULAR HGB CONC 33.7 % (33.0-36.5); MEAN PLATELET VOLUME 7.5 FL (7.4-10.4); MONOCYTES # (AUTO) 0.6 X10'3 (0-0.9); MONOCYTES % (AUTO) 10.2 % (2-12); NEUTROPHILS # (AUTO) 3.8 X10'3 (1.8-7.7); NEUTROPHILS % (AUTO) 62.9 % (42-75); PLATELET COUNT 331 X10'3 (140-440); RED BLOOD COUNT 2.72 X10'6 (4.70-6.10); RED CELL DISTRIBUTION WIDTH 17.1 % (11.5-14.5); WHITE BLOOD COUNT 6.1 X10'3 (4.5-11.0)
[2017-05-24 06:24] LABS: ALANINE AMINOTRANSFERASE 42 U/L (12-78); ALBUMIN 2.4 G/DL (3.4-5.0); ALBUMIN/GLOBULIN RATIO 0.5 (1.1-1.5); ALKALINE PHOSPHATASE 269 IU/L (46-116); ANION GAP 12 (8-16); ASPARTATE AMINO TRANSFERASE 31 U/L (10-37); BILIRUBIN,TOTAL 0.4 MG/DL (0.1-1.0); BLOOD UREA NITROGEN 112 MG/DL (7-18); BUN/CREATININE RATIO 32.7 (5.4-32.0); CALCIUM 8.7 MG/DL (8.5-10.1); CHLORIDE 105 MMOL/L (99-107); CREATININE 3.43 MG/DL (0.60-1.10); GLUCOSE 85 MG/DL (70-104); MAGNESIUM 2.2 MG/DL (1.5-2.4); PHOSPHORUS 4.9 MG/DL (2.3-4.5); POTASSIUM 5.3 MMOL/L (3.5-5.1); SODIUM 139 MMOL/L (135-145); TOTAL CARBON DIOXIDE 21.7 MMOL/L (24-32); TOTAL PROTEIN 6.9 G/DL (6.4-8.2); eGFR 19 ML/MIN
[2017-05-24] MEDS: hydrALAZINE 25 MG tablet PO SCH ×2 (08:20→16:00)
[2017-05-24] MEDS: lactobacillus rhamnosus 10,000 MMU CELLS/CAPSULE PO SCH (08:20)
[2017-05-24] MEDS: aspirin 81mg tab.chew PO SCH (08:20)
[2017-05-24] MEDS: carvedilol 6.25mg tablet PO SCH ×2 (08:20→20:49)
[2017-05-24] MEDS: amLODIPine 5mg tablet PO SCH (08:20)
[2017-05-24] MEDS: HYDROcodone/acetaminophen 10/325mg tab PO PRN (08:21)
[2017-05-24] MEDS ORDERED: sodium bicarbonate (8.4%) 1 mEq/ml syringe IV STA (12:23)
[2017-05-24] MEDS ORDERED: furosemide 20 MG/2 ML vial IV ONE (12:23)
[2017-05-24] MEDS ORDERED: albuterol 2.5 MG/3 ML nebule NEB ONE ×2 (12:25→18:00)
[2017-05-24] MEDS ORDERED: FOLI1TAB16 PO (12:32)
[2017-05-24] MEDS ORDERED: THI100T PO (12:32)
[2017-05-24] MEDS: sodium polystyrene sulfonate 15gm/60ml oral suspension PO ONE ×2 (12:40→13:20)
[2017-05-24] MEDS ORDERED: normal saline 1000ml 1,000 ML IV ONE (16:35)
[2017-05-24] MEDS ORDERED: furosemide 20 MG/2 ML vial IV STA (17:57)
[2017-05-24 18:00] VITALS: BP 155/74
[2017-05-24] MEDS ORDERED: insulin regular, human 10 units/0.1 ml syringe IV ONE (18:00)
[2017-05-24] MEDS ORDERED: sodium bicarbonate (8.4%) 1 mEq/ml syringe IV ONE (18:00)
[2017-05-24] MEDS ORDERED: sodium polystyrene sulfonate 15gm/60ml oral suspension PO ONE (18:00)
[2017-05-24] MEDS ORDERED: dextrose 50%-water 50ml dispensing syringe IV ONE (18:00)
[2017-05-24] MEDS: polyethylene glycol 3350 17gm powd pack PO SCH (20:50)
[2017-05-24] MEDS: insulin glargine (Lantus) pen - multi-dose SQ SCH (21:08)
[2017-05-25] VITALS: BP 152/65
[2017-05-25] MEDS: hydrALAZINE 25 MG tablet PO SCH ×2 (00:14→08:06)
[2017-05-25] MEDS: acetaminophen 325mg tablet PO PRN ×2 (00:14→08:07)
[2017-05-25 05:34] LABS: ALANINE AMINOTRANSFERASE 44 U/L (12-78); ALBUMIN 2.5 G/DL (3.4-5.0); ALBUMIN/GLOBULIN RATIO 0.6 (1.1-1.5); ALKALINE PHOSPHATASE 274 IU/L (46-116); ANION GAP 12 (8-16); ASPARTATE AMINO TRANSFERASE 30 U/L (10-37); BILIRUBIN,TOTAL 0.4 MG/DL (0.1-1.0); BLOOD UREA NITROGEN 108 MG/DL (7-18); CALCIUM 8.5 MG/DL (8.5-10.1); CHLORIDE 103 MMOL/L (99-107); CREATININE 3.27 MG/DL (0.60-1.10); GLUCOSE 100 MG/DL (70-104); MAGNESIUM 1.9 MG/DL (1.5-2.4); PHOSPHORUS 4.6 MG/DL (2.3-4.5); POTASSIUM 4.9 MMOL/L (3.5-5.1); SODIUM 138 MMOL/L (135-145); TOTAL CARBON DIOXIDE 23.4 MMOL/L (24-32); eGFR 20 ML/MIN
[2017-05-25 07:24] VITALS: BP 161/76
[2017-05-25] MEDS: aspirin 81mg tab.chew PO SCH (08:06)
[2017-05-25] MEDS: carvedilol 6.25mg tablet PO SCH (08:06)
[2017-05-25] MEDS: lactobacillus rhamnosus 10,000 MMU CELLS/CAPSULE PO SCH (08:06)
[2017-05-25] MEDS: amLODIPine 5mg tablet PO SCH (08:06)
== END 2017-05-25 15:30 | disposition home or self-care (01) | DRG 349 ==
LOC: ER 20:38 → ED HOLD 04-27 00:05 → MED 3N 04-27 02:16 → PCU 3S 05-01 19:00 → MED 3N 05-21 17:40
PROVIDERS: ADMIT Internal Medicine; ATTEND Internal Medicine
DX: T87.44 Infection of amputation stump, left lower extremity (principal); I50.23 Acute on chronic systolic (congestive) heart failure; G93.40 Encephalopathy, unspecified; J18.9 Pneumonia, unspecified organism; N17.9 Acute kidney failure, unspecified; N18.4 Chronic kidney disease, stage 4 (severe); I13.0 Hypertensive heart and chronic kidney disease with heart failure and stage 1 through stage 4 chronic kidney disease, or unspecified chronic kidney disease; E10.22 Type 1 diabetes mellitus with diabetic chronic kidney disease; E46 Unspecified protein-calorie malnutrition; L03.116 Cellulitis of left lower limb; E87.5 Hyperkalemia; D63.8 Anemia in other chronic diseases classified elsewhere; F10.10 Alcohol abuse, uncomplicated; F15.10 Other stimulant abuse, uncomplicated; N32.0 Bladder-neck obstruction; W05.0XXA Fall from non-moving wheelchair, initial encounter; R31.9 Hematuria, unspecified; R33.9 Retention of urine, unspecified; G40.909 Epilepsy, unspecified, not intractable, without status epilepticus; Z60.2 Problems related to living alone; Y83.5 Amputation of limb(s) as the cause of abnormal reaction of the patient, or of later complication, without mention of misadventure at the time of the procedure; J98.11 Atelectasis; K43.9 Ventral hernia without obstruction or gangrene; E10.65 Type 1 diabetes mellitus with hyperglycemia; K70.31 Alcoholic cirrhosis of liver with ascites; Z68.31 Body mass index [BMI] 31.0-31.9, adult; Z59.0 Homelessness; Z83.3 Family history of diabetes mellitus; Z86.14 Personal history of Methicillin resistant Staphylococcus aureus infection; Z88.6 Allergy status to analgesic agent; Z79.899 Other long term (current) drug therapy; Z79.82 Long term (current) use of aspirin; Z79.01 Long term (current) use of anticoagulants; Z99.3 Dependence on wheelchair; Z89.511 Acquired absence of right leg below knee; Y93.89 Activity, other specified; Y92.89 Other specified places as the place of occurrence of the external cause; Y99.8 Other external cause status
CPT/HCPCS: 36415; 71045; 74176; 76705; 76775; 80048; 80053; 80061; 80069; 81001; 82140; 82570; 82728; 82948; 83036; 83540; 83550; 83605; 83690; 83735; 83880; 84100; 84132; 84145; 84156; 84300; 84560; 85025; 85610; 85730; 87040; 87070; 87207; 93005; 93306; 94640; 94760; 96365; 96366; 96367; 99285; A4315; A6196; A6212; A6213; A6257; A6446; A6449; C9113; J0360; J0456; J0696; J0885; J1250; J1644; J1815; J1940; J2001; J2060; J2543; J3411; J3490; J7030; J7040; J8597

== ENCOUNTER 2017-05-28 20:54 | Inpatient (IN) | payer MEDICAID ==
[~2017-05-28] VITALS: Ht 177.8 cm; Wt 77.3 kg
[~2017-05-28 20:54] MED LIST changes: -CLON0.1T20 PO; +FOLI1TAB16 PO; +THI100T PO
[2017-05-28 21:52] LABS: BASOPHILS # (AUTO) 0.1 X10'3 (0-0.2); BASOPHILS % (AUTO) 0.4 % (0-1); EOSINOPHILS # (AUTO) 0.5 X10'3 (0-0.9); EOSINOPHILS % (AUTO) 4.2 % (0-6); HEMATOCRIT 27.7 % (42.0-52.0); HEMOGLOBIN 9.6 g/dl (14.0-17.9); LYMPHOCYTES # (AUTO) 1.2 X10'3 (1.1-4.8); LYMPHOCYTES % (AUTO) 9.6 % (21-51); MEAN CORPUSCULAR HEMOGLOBIN 29.4 PG (27.0-31.0); MEAN CORPUSCULAR HGB CONC 34.7 % (33.0-36.5); MEAN CORPUSCULAR VOLUME 84.8 FL (78-98); MEAN PLATELET VOLUME 7.4 FL (7.4-10.4); MONOCYTES # (AUTO) 0.9 X10'3 (0-0.9); MONOCYTES % (AUTO) 7.2 % (2-12); NEUTROPHILS # (AUTO) 9.6 X10'3 (1.8-7.7); NEUTROPHILS % (AUTO) 78.6 % (42-75); PLATELET COUNT 373 X10'3 (140-440); RED BLOOD COUNT 3.27 X10'6 (4.70-6.10); WHITE BLOOD COUNT 12.2 X10'3 (4.5-11.0)
[2017-05-28 22:13] LABS: INR 1.1 INR; PARTIAL THROMBOPLASTIN TIME 28 SECONDS (22-32); PROTHROMBIN TIME 10.9 SECONDS (9.0-12.0)
[2017-05-28 22:19] LABS: URINE AMPHETAMINE SCREEN NEGATIVE (Neg); URINE BARBITUATE SCREEN NEGATIVE (Neg); URINE BENZODIAZEPINES SCREEN NEGATIVE (Neg); URINE CANNABINOID SCREEN NEGATIVE (Neg); URINE COCAINE SCREEN NEGATIVE (Neg); URINE METHADONE SCREEN NEGATIVE (Neg); URINE OPIATE SCREEN NEGATIVE (Neg); URINE PHENCYCLIDINE SCREEN NEGATIVE (Neg)
[2017-05-28 22:25] LABS: ALANINE AMINOTRANSFERASE 42 U/L (12-78); ALBUMIN 2.7 G/DL (3.4-5.0); ALBUMIN/GLOBULIN RATIO 0.5 (1.1-1.5); ALKALINE PHOSPHATASE 286 IU/L (46-116); ANION GAP 10 (8-16); ASPARTATE AMINO TRANSFERASE 27 U/L (10-37); BILIRUBIN,TOTAL 0.5 MG/DL (0.1-1.0); BLOOD UREA NITROGEN 63 MG/DL (7-18); BUN/CREATININE RATIO 23.2 (5.4-32.0); CALCIUM 8.5 MG/DL (8.5-10.1); CHLORIDE 103 MMOL/L (99-107); CREATININE 2.71 MG/DL (0.60-1.10); ETHANOL < 0.010 GM/DL (0.0-0.010); GLUCOSE 387 MG/DL (70-104); POTASSIUM 5.1 MMOL/L (3.5-5.1); SODIUM 136 MMOL/L (135-145); TOTAL PROTEIN 7.7 G/DL (6.4-8.2); eGFR 25 ML/MIN
[2017-05-28] MEDS ORDERED: insulin regular, human 10 units/0.1 ml syringe IV ONE (22:50)
[2017-05-28] MEDS ORDERED: furosemide 10 MG/1 ML 10ml inj IV ONE (22:50)
[2017-05-28] MEDS ORDERED: HYDR-4069 PO (23:40)
[2017-05-28] MEDS ORDERED: ASPI-1265 PO (23:40)
[2017-05-28] MEDS ORDERED: THI100T PO (23:40)
[2017-05-28] MEDS ORDERED: FOLI1TAB16 PO (23:40)
[2017-05-28] MEDS ORDERED: AMLO2.5T2 PO (23:40)
[2017-05-29] MEDS ORDERED: acetaminophen 325mg tablet PO PRN (00:30)
[2017-05-29] MEDS ORDERED: mag hydrox/Alum hydrox/simeth 30ml oral suspension PO PRN (00:30)
[2017-05-29] MEDS ORDERED: magnesium hydroxide 30ml (MOM) UD suspension PO PRN (00:30)
[2017-05-29] MEDS ORDERED: ondansetron/PF 4mg/2ml inj IV PRN (00:30)
[2017-05-29] MEDS ORDERED: glucagon, human recombinant 1mg kit SUBCUT PRN (00:35)
[2017-05-29] MEDS ORDERED: insulin Lispro (HumaLOG) vial - multi-dose SQ SCH (00:35)
[2017-05-29] MEDS ORDERED: dextrose 50%-water 50ml dispensing syringe IV PRN ×2 (00:35)
[2017-05-29] MEDS ORDERED: dextrose ORAL solution 15 GM/59 ML bottle PO PRN ×2 (00:35)
[2017-05-29] MEDS ORDERED: MESSAGE TO PHARMACY PO ONE (00:35)
[2017-05-29 01:30] VITALS: BP 171/84
[2017-05-29 08:00] VITALS: BP 167/82
[2017-05-29] MEDS ORDERED: amLODIPine 2.5mg tablet PO SCH (08:00)
[2017-05-29] MEDS ORDERED: aspirin 81mg tab.chew PO SCH (08:00)
[2017-05-29] MEDS ORDERED: thiamine 100mg tablet PO SCH (08:00)
[2017-05-29] MEDS ORDERED: folic acid 1mg tablet PO SCH (08:00)
[2017-05-29] MEDS ORDERED: hydrALAZINE 25 MG tablet PO SCH (08:00)
[2017-05-29] MEDS ORDERED: carvedilol 6.25mg tablet PO SCH (08:00)
[2017-05-29] MEDS ORDERED: heparin, porcine 5000 units/ml vial SQ SCH (08:00)
[2017-05-29] MEDS ORDERED: AZIT500T PO (11:46)
[2017-05-29] MEDS ORDERED: ROBDML PO (11:46)
[2017-05-29 11:58] VITALS: BP 134/68
[2017-05-29] MEDS ORDERED: insulin glargine (Lantus) pen - multi-dose SQ SCH ×2 (21:00)
== END 2017-05-29 15:40 | disposition home or self-care (01) | DRG 194 ==
LOC: ER 20:54 → ED HOLD 05-29 00:27 → MED 3N 05-29 01:39
PROVIDERS: ADMIT Internal Medicine; ATTEND Internal Medicine
DX: I13.0 Hypertensive heart and chronic kidney disease with heart failure and stage 1 through stage 4 chronic kidney disease, or unspecified chronic kidney disease (principal); E11.22 Type 2 diabetes mellitus with diabetic chronic kidney disease; I43 Cardiomyopathy in diseases classified elsewhere; D64.9 Anemia, unspecified; I50.9 Heart failure, unspecified; F17.200 Nicotine dependence, unspecified, uncomplicated; J98.11 Atelectasis; Z60.2 Problems related to living alone; K70.30 Alcoholic cirrhosis of liver without ascites; E11.65 Type 2 diabetes mellitus with hyperglycemia; N18.3 Chronic kidney disease, stage 3 (moderate); E66.9 Obesity, unspecified; Z68.24 Body mass index [BMI] 24.0-24.9, adult; Z89.511 Acquired absence of right leg below knee; Z89.512 Acquired absence of left leg below knee; Z79.899 Other long term (current) drug therapy; Z79.4 Long term (current) use of insulin; Z79.84 Long term (current) use of oral hypoglycemic drugs
CPT/HCPCS: 36415; 71045; 80053; 80305; 80320; 82948; 83605; 83880; 84484; 85025; 85610; 85730; 87040; 87070; 93005; 96374; 96375; 99285; J1644; J1815; J1940

== ENCOUNTER 2017-07-07 22:53 | Emergency (ER) | payer MEDICAID ==
[~2017-07-07] VITALS: Ht 185.4 cm; Wt 72.3 kg
[~2017-07-07 22:53] MED LIST changes: +ACET-2119 PO; +ALB0.5UD NEB; +AMLO10TA PO; +AMLO2.5T2 PO; -AMLO5TAB16 PO; +BALS60OI TOP; +DOCU100C41 PO; +DOCU1ENE3 RC; +EPOE10005 HE; +HYDR-569 PO; +MELA3TAB PO; +OMEP20TA23 PO; +ONDA4TAB9 SL; +POLY17PO10 PO; +ROBDML PO; +SODI30SP3 BOTHNARES; +[UNRECOGNIZED DRUG - CODE] HE; +[UNRECOGNIZED DRUG - CODE] IV
[2017-07-07] MEDS ORDERED: LIDOcaine 1.5% w/epinephrine 1:200,000 5ml ampul IJ ONE (23:50)
[2017-07-07 23:56] LABS: BASOPHILS % (AUTO) 0.1 % (0-1); EOSINOPHILS # (AUTO) 0.4 X10'3 (0-0.9); EOSINOPHILS % (AUTO) 3.4 % (0-6); HEMATOCRIT 23.3 % (42.0-52.0); HEMOGLOBIN 7.6 g/dl (14.0-17.9); LYMPHOCYTES # (AUTO) 1.2 X10'3 (1.1-4.8); LYMPHOCYTES % (AUTO) 10.6 % (21-51); MEAN CORPUSCULAR HEMOGLOBIN 26.1 PG (27.0-31.0); MEAN CORPUSCULAR HGB CONC 32.7 % (33.0-36.5); MEAN CORPUSCULAR VOLUME 79.9 FL (78-98); MEAN PLATELET VOLUME 6.4 FL (7.4-10.4); MONOCYTES # (AUTO) 1.4 X10'3 (0-0.9); MONOCYTES % (AUTO) 11.9 % (2-12); NEUTROPHILS # (AUTO) 8.4 X10'3 (1.8-7.7); PLATELET COUNT 644 X10'3 (140-440); RED BLOOD COUNT 2.92 X10'6 (4.70-6.10); RED CELL DISTRIBUTION WIDTH 17.4 % (11.5-14.5); WHITE BLOOD COUNT 11.4 X10'3 (4.5-11.0)
[2017-07-08 00:09] LABS: INR 1.2 INR; PARTIAL THROMBOPLASTIN TIME 31 SECONDS (22-32); PROTHROMBIN TIME 12.3 SECONDS (9.0-12.0)
[2017-07-08 00:11] LABS: ALANINE AMINOTRANSFERASE 21 U/L (12-78); ALBUMIN 2.1 G/DL (3.4-5.0); ALBUMIN/GLOBULIN RATIO 0.4 (1.1-1.5); ALKALINE PHOSPHATASE 304 IU/L (46-116); ANION GAP 10 (8-16); ASPARTATE AMINO TRANSFERASE 24 U/L (10-37); BILIRUBIN,TOTAL 0.9 MG/DL (0.1-1.0); BLOOD UREA NITROGEN 47 MG/DL (7-18); BUN/CREATININE RATIO 12.9 (5.4-32.0); CALCIUM 8.7 MG/DL (8.5-10.1); CHLORIDE 101 MMOL/L (99-107); CREATININE 3.64 MG/DL (0.60-1.10); GLUCOSE 88 MG/DL (70-104); SODIUM 139 MMOL/L (135-145); TOTAL CARBON DIOXIDE 27.9 MMOL/L (24-32); TOTAL PROTEIN 7.6 G/DL (6.4-8.2); eGFR 17 ML/MIN
[2017-07-08] MEDS ORDERED: sodium polystyrene sulfonate 15gm/60ml oral suspension PO ONE (00:25)
[2017-07-08 01:46] VITALS: BP 138/78
== END 2017-07-08 02:47 | disposition home or self-care (01) ==
LOC: ER 22:54
DX: T82.838A Hemorrhage due to vascular prosthetic devices, implants and grafts, initial encounter (principal); I13.2 Hypertensive heart and chronic kidney disease with heart failure and with stage 5 chronic kidney disease, or end stage renal disease; N18.6 End stage renal disease; I50.9 Heart failure, unspecified; E11.22 Type 2 diabetes mellitus with diabetic chronic kidney disease; Z89.511 Acquired absence of right leg below knee; Z89.512 Acquired absence of left leg below knee; F15.10 Other stimulant abuse, uncomplicated; Z79.4 Long term (current) use of insulin; Z79.82 Long term (current) use of aspirin; Z79.899 Other long term (current) drug therapy; Z88.5 Allergy status to narcotic agent; Z60.2 Problems related to living alone
CPT/HCPCS: 36415; 80053; 85025; 85610; 85730; 99284; A6251; A6255; A6257; J3490

== ENCOUNTER 2017-11-07 20:02 | Inpatient (IN) | payer MEDICAID ==
[~2017-11-07] VITALS: Ht 185.4 cm; Wt 70.7 kg
[~2017-11-07 20:02] MED LIST changes: -AMLO2.5T2 PO; -ROBDML PO
[2017-11-07 21:56] LABS: BASOPHILS % (AUTO) 0.1 % (0-1); EOSINOPHILS # (AUTO) 0.3 X10'3 (0-0.9); EOSINOPHILS % (AUTO) 3.7 % (0-6); HEMATOCRIT 28.6 % (42.0-52.0); LYMPHOCYTES # (AUTO) 0.8 X10'3 (1.1-4.8); LYMPHOCYTES % (AUTO) 9.7 % (21-51); MEAN CORPUSCULAR HEMOGLOBIN 23.7 PG (27.0-31.0); MEAN CORPUSCULAR HGB CONC 31.4 % (33.0-36.5); MEAN CORPUSCULAR VOLUME 75.5 FL (78-98); MEAN PLATELET VOLUME 6.4 FL (7.4-10.4); MONOCYTES # (AUTO) 0.8 X10'3 (0-0.9); MONOCYTES % (AUTO) 9.1 % (2-12); NEUTROPHILS # (AUTO) 6.8 X10'3 (1.8-7.7); NEUTROPHILS % (AUTO) 77.4 % (42-75); PLATELET COUNT 323 X10'3 (140-440); RED BLOOD COUNT 3.78 X10'6 (4.70-6.10); RED CELL DISTRIBUTION WIDTH 19.6 % (11.5-14.5); WHITE BLOOD COUNT 8.8 X10'3 (4.5-11.0)
[2017-11-07 22:20] LABS: ALANINE AMINOTRANSFERASE 15 U/L (12-78); ALBUMIN 2.6 G/DL (3.4-5.0); ALBUMIN/GLOBULIN RATIO 0.5 (1.1-1.5); ALKALINE PHOSPHATASE 165 IU/L (46-116); ANION GAP 7 (8-16); ASPARTATE AMINO TRANSFERASE 19 U/L (10-37); BILIRUBIN,TOTAL 0.7 MG/DL (0.1-1.0); BLOOD UREA NITROGEN 33 MG/DL (7-18); BUN/CREATININE RATIO 12.9 (5.4-32.0); CALCIUM 8.5 MG/DL (8.5-10.1); CHLORIDE 98 MMOL/L (99-107); CREATININE 2.56 MG/DL (0.60-1.10); GLUCOSE 134 MG/DL (70-104); POTASSIUM 4.2 MMOL/L (3.5-5.1); SODIUM 134 MMOL/L (135-145); TOTAL CARBON DIOXIDE 28.9 MMOL/L (24-32); TOTAL PROTEIN 7.5 G/DL (6.4-8.2); eGFR 26 ML/MIN
[2017-11-07] MEDS ORDERED: acetaminophen 325mg tablet PO PRN ×2 (23:10)
[2017-11-07] MEDS ORDERED: HYDROcodone/acetaminophen 5mg/325mg tablet PO PRN (23:10)
[2017-11-07] MEDS ORDERED: ipratropium/albuterol 3ml nebule NEB PRN (23:10)
[2017-11-07] MEDS ORDERED: ALBU18HF2 INH (23:16)
[2017-11-07] MEDS ORDERED: ONDA4TAB12 PO (23:16)
[2017-11-07] MEDS ORDERED: INSU100I39 SQ (23:18)
[2017-11-07] MEDS ORDERED: HYDR-569 PO (23:19)
[2017-11-07] MEDS ORDERED: AMLO2.5T2 PO (23:22)
[2017-11-07] MEDS ORDERED: DOCU-267 PO (23:24)
[2017-11-07] MEDS ORDERED: MESSAGE TO PHARMACY PO ONE (23:25)
[2017-11-07] MEDS ORDERED: insulin Lispro (HumaLOG) vial - multi-dose SQ SCH (23:25)
[2017-11-07] MEDS ORDERED: glucagon, human recombinant 1mg kit SUBCUT PRN (23:25)
[2017-11-07] MEDS ORDERED: dextrose ORAL solution 15 GM/59 ML bottle PO PRN ×2 (23:25)
[2017-11-07] MEDS ORDERED: dextrose 50%-water 50ml dispensing syringe IV PRN ×2 (23:25)
[2017-11-07] MEDS ORDERED: HYDR-4069 PO (23:26)
[2017-11-07] MEDS ORDERED: SENN-161 PO (23:41)
[2017-11-07] MEDS ORDERED: SIME80TA16 PO (23:41)
[2017-11-07] MEDS ORDERED: POLY17PO10 PO (23:41)
[2017-11-07] MEDS ORDERED: ASPI81TA52 PO (23:41)
[2017-11-07] MEDS ORDERED: CARV-49 PO (23:41)
[2017-11-07] MEDS ORDERED: FOLI1TAB16 PO (23:41)
[2017-11-07 23:48] LABS: HEMOGLOBIN A1C 6.9 % (4.5-6.2)
[2017-11-08] VITALS (7 sets, daily range): BP systolic 132–157; BP diastolic 61–76
[2017-11-08 00:03] LABS: PLATELET ESTIMATE NORMAL
[2017-11-08 00:04] LABS: ANISOCYTOSIS 2+; HYPOCHROMASIA 1+; MICROCYTOSIS 1+
[2017-11-08 05:07] LABS: BASOPHILS % (AUTO) 0.4 % (0-1); EOSINOPHILS # (AUTO) 0.5 X10'3 (0-0.9); EOSINOPHILS % (AUTO) 5.9 % (0-6); HEMATOCRIT 29.2 % (42.0-52.0); HEMOGLOBIN 9.1 g/dl (14.0-17.9); LYMPHOCYTES # (AUTO) 0.9 X10'3 (1.1-4.8); LYMPHOCYTES % (AUTO) 11.1 % (21-51); MEAN CORPUSCULAR HEMOGLOBIN 23.6 PG (27.0-31.0); MEAN CORPUSCULAR HGB CONC 31.2 % (33.0-36.5); MEAN CORPUSCULAR VOLUME 75.5 FL (78-98); MEAN PLATELET VOLUME 6.5 FL (7.4-10.4); MONOCYTES # (AUTO) 0.8 X10'3 (0-0.9); MONOCYTES % (AUTO) 9.9 % (2-12); NEUTROPHILS # (AUTO) 5.9 X10'3 (1.8-7.7); NEUTROPHILS % (AUTO) 72.7 % (42-75); PLATELET COUNT 327 X10'3 (140-440); RED BLOOD COUNT 3.86 X10'6 (4.70-6.10); RED CELL DISTRIBUTION WIDTH 19.5 % (11.5-14.5); WHITE BLOOD COUNT 8.1 X10'3 (4.5-11.0)
[2017-11-08] MEDS ORDERED: simethicone 80mg chew tab PO PRN (05:15)
[2017-11-08 05:37] LABS: ALANINE AMINOTRANSFERASE 16 U/L (12-78); ALBUMIN 2.6 G/DL (3.4-5.0); ALBUMIN/GLOBULIN RATIO 0.5 (1.1-1.5); ALKALINE PHOSPHATASE 157 IU/L (46-116); ANION GAP 9 (8-16); ASPARTATE AMINO TRANSFERASE 18 U/L (10-37); BILIRUBIN,TOTAL 0.7 MG/DL (0.1-1.0); BLOOD UREA NITROGEN 33 MG/DL (7-18); BUN/CREATININE RATIO 12.8 (5.4-32.0); CALCIUM 8.5 MG/DL (8.5-10.1); CHLORIDE 99 MMOL/L (99-107); CREATININE 2.58 MG/DL (0.60-1.10); GLUCOSE 97 MG/DL (70-104); MAGNESIUM 2.3 MG/DL (1.5-2.4); PHOSPHORUS 4.2 MG/DL (2.3-4.5); POTASSIUM 4.2 MMOL/L (3.5-5.1); SODIUM 137 MMOL/L (135-145); TOTAL CARBON DIOXIDE 29.4 MMOL/L (24-32); TOTAL PROTEIN 7.5 G/DL (6.4-8.2); eGFR 26 ML/MIN
[2017-11-08] MEDS: polyethylene glycol 3350 17gm powd pack PO SCH ×3 (08:00→20:39)
[2017-11-08] MEDS: docusate sod 100mg capsule PO SCH ×2 (08:00→20:16)
[2017-11-08] MEDS: sennosides 8.6mg tablet PO SCH ×2 (08:00→20:16)
[2017-11-08] MEDS: amLODIPine 5mg tablet PO SCH (08:15)
[2017-11-08] MEDS: carvedilol 6.25mg tablet PO SCH ×2 (08:16→20:16)
[2017-11-08] MEDS: folic acid 1mg tablet PO SCH (08:16)
[2017-11-08] MEDS: aspirin 81mg tablet.DR PO SCH (08:16)
[2017-11-08] MEDS: heparin, porcine 5000 units/ml vial SQ SCH ×2 (08:18→20:00)
[2017-11-08] MEDS: HYDROcodone/acetaminophen 5mg/325mg tablet PO SCH ×3 (08:19→23:29)
[2017-11-08] MEDS: hydrALAZINE 25 MG tablet PO SCH ×3 (08:20→23:28)
[2017-11-08] MEDS ORDERED: heparin 1,000unit/ml 10ml vial 10 ML IV ONE (09:38)
[2017-11-08] MEDS ORDERED: normal saline 1000ml 250 ML IV PRN (09:38)
[2017-11-08] MEDS ORDERED: epoetin 20,000 units/ml inj IV ONE (09:40)
[2017-11-08] MEDS ORDERED: heparin 1,000 units/ml 10ml inj HE ONE ×2 (09:45)
[2017-11-08] MEDS: insulin glargine (Lantus) pen - multi-dose SQ SCH (21:00)
[2017-11-09] VITALS (13 sets, daily range): BP systolic 98–154; BP diastolic 46–73
[2017-11-09 05:21] LABS: BASOPHILS # (AUTO) 0.1 X10'3 (0-0.2); EOSINOPHILS # (AUTO) 0.4 X10'3 (0-0.9); HEMATOCRIT 27.8 % (42.0-52.0); HEMOGLOBIN 8.7 g/dl (14.0-17.9); LYMPHOCYTES # (AUTO) 0.8 X10'3 (1.1-4.8); LYMPHOCYTES % (AUTO) 11.6 % (21-51); MEAN CORPUSCULAR HGB CONC 31.4 % (33.0-36.5); MEAN CORPUSCULAR VOLUME 76.4 FL (78-98); MEAN PLATELET VOLUME 6.7 FL (7.4-10.4); MONOCYTES # (AUTO) 0.7 X10'3 (0-0.9); MONOCYTES % (AUTO) 10.8 % (2-12); NEUTROPHILS # (AUTO) 4.8 X10'3 (1.8-7.7); NEUTROPHILS % (AUTO) 70.6 % (42-75); PLATELET COUNT 327 X10'3 (140-440); RED BLOOD COUNT 3.64 X10'6 (4.70-6.10); RED CELL DISTRIBUTION WIDTH 19.9 % (11.5-14.5); WHITE BLOOD COUNT 6.8 X10'3 (4.5-11.0)
[2017-11-09 05:36] LABS: ALANINE AMINOTRANSFERASE 18 U/L (12-78); ALBUMIN 2.5 G/DL (3.4-5.0); ALBUMIN/GLOBULIN RATIO 0.5 (1.1-1.5); ALKALINE PHOSPHATASE 148 IU/L (46-116); ANION GAP 5 (8-16); ASPARTATE AMINO TRANSFERASE 26 U/L (10-37); BILIRUBIN,TOTAL 0.8 MG/DL (0.1-1.0); BLOOD UREA NITROGEN 21 MG/DL (7-18); BUN/CREATININE RATIO 9.2 (5.4-32.0); CALCIUM 8.2 MG/DL (8.5-10.1); CHLORIDE 98 MMOL/L (99-107); CREATININE 2.28 MG/DL (0.60-1.10); GLUCOSE 125 MG/DL (70-104); MAGNESIUM 2.1 MG/DL (1.5-2.4); PHOSPHORUS 4.1 MG/DL (2.3-4.5); POTASSIUM 4.7 MMOL/L (3.5-5.1); SODIUM 134 MMOL/L (135-145); TOTAL CARBON DIOXIDE 30.6 MMOL/L (24-32); TOTAL PROTEIN 7.3 G/DL (6.4-8.2); eGFR 30 ML/MIN
[2017-11-09] MEDS: heparin, porcine 5000 units/ml vial SQ SCH ×2 (08:00→20:00)
[2017-11-09] MEDS: polyethylene glycol 3350 17gm powd pack PO SCH ×3 (08:00→21:00)
[2017-11-09] MEDS: hydrALAZINE 25 MG tablet PO SCH ×2 (09:01→16:48)
[2017-11-09] MEDS: amLODIPine 5mg tablet PO SCH (09:02)
[2017-11-09] MEDS: aspirin 81mg tablet.DR PO SCH (09:02)
[2017-11-09] MEDS: sennosides 8.6mg tablet PO SCH ×2 (09:02→20:00)
[2017-11-09] MEDS: HYDROcodone/acetaminophen 5mg/325mg tablet PO SCH ×3 (09:02→16:48)
[2017-11-09] MEDS: folic acid 1mg tablet PO SCH (09:02)
[2017-11-09] MEDS: carvedilol 6.25mg tablet PO SCH ×2 (09:02→20:00)
[2017-11-09] MEDS: docusate sod 100mg capsule PO SCH ×2 (09:03→20:00)
[2017-11-09] MEDS: ondansetron/PF 4mg/2ml inj IV PRN (10:44)
[2017-11-09 11:28] LABS: AMYLASE,BODY FLUID 45 U/L; GLUCOSE,BODY FLUID 144 MG/DL; LDH,BODY FLUID 98 U/L; TOTAL PROTEIN,BODY FLUID 3.1 G/DL
[2017-11-09 11:49] LABS: BF WBC COUNT 47 /CU MM (0-1000); BFAPPEAR CLEAR; BFCOLOR YELLOW; BFVOLUME 21 ML; EOSINOPHILS,BODY FLUID 1 %; LYMPHOCYTES,BODY FLUID 15 %; MONOCYTES,BODY FLUID 84 %
[2017-11-09 11:50] LABS: BF RBC COUNT 19 /CU MM; BFSOURCE LEFT PLEURAL FLD; NEUTROPHILS,BODY FLUID 0 %; PLEURAL FLUID PH 7.362 (7.63-7.65)
[2017-11-09] MEDS ORDERED: LORazepam 2 mg/ml vial IV ONE (11:55)
[2017-11-09] MEDS ORDERED: guaiFENesin/DM oral syrup 5 ML CUP PO PRN (11:55)
[2017-11-09] MEDS ORDERED: LORazepam 2 mg/ml vial ONE (11:56)
[2017-11-09] MEDS: insulin glargine (Lantus) pen - multi-dose SQ SCH (21:00)
[2017-11-10 03:00] VITALS: BP 140/64
[2017-11-10 05:21] LABS: BASOPHILS # (AUTO) 0.1 X10'3 (0-0.2); EOSINOPHILS # (AUTO) 0.3 X10'3 (0-0.9); EOSINOPHILS % (AUTO) 3.8 % (0-6); HEMOGLOBIN 8.7 g/dl (14.0-17.9); LYMPHOCYTES # (AUTO) 0.8 X10'3 (1.1-4.8); LYMPHOCYTES % (AUTO) 9.7 % (21-51); MEAN CORPUSCULAR HEMOGLOBIN 23.7 PG (27.0-31.0); MEAN CORPUSCULAR HGB CONC 31.1 % (33.0-36.5); MEAN CORPUSCULAR VOLUME 76.3 FL (78-98); MEAN PLATELET VOLUME 6.8 FL (7.4-10.4); MONOCYTES % (AUTO) 12.9 % (2-12); NEUTROPHILS # (AUTO) 5.8 X10'3 (1.8-7.7); NEUTROPHILS % (AUTO) 72.6 % (42-75); PLATELET COUNT 299 X10'3 (140-440); RED BLOOD COUNT 3.67 X10'6 (4.70-6.10); WHITE BLOOD COUNT 8.1 X10'3 (4.5-11.0)
[2017-11-10 05:47] LABS: ALANINE AMINOTRANSFERASE 19 U/L (12-78); ALBUMIN 2.4 G/DL (3.4-5.0); ALBUMIN/GLOBULIN RATIO 0.5 (1.1-1.5); ALKALINE PHOSPHATASE 139 IU/L (46-116); ANION GAP 5 (8-16); ASPARTATE AMINO TRANSFERASE 20 U/L (10-37); BILIRUBIN,TOTAL 0.7 MG/DL (0.1-1.0); BLOOD UREA NITROGEN 29 MG/DL (7-18); BUN/CREATININE RATIO 9.6 (5.4-32.0); CALCIUM 8.4 MG/DL (8.5-10.1); CHLORIDE 97 MMOL/L (99-107); CREATININE 3.01 MG/DL (0.60-1.10); GLUCOSE 126 MG/DL (70-104); MAGNESIUM 2.2 MG/DL (1.5-2.4); PHOSPHORUS 4.8 MG/DL (2.3-4.5); POTASSIUM 4.9 MMOL/L (3.5-5.1); SODIUM 133 MMOL/L (135-145); TOTAL CARBON DIOXIDE 31.1 MMOL/L (24-32); TOTAL PROTEIN 6.9 G/DL (6.4-8.2); eGFR 22 ML/MIN
[2017-11-10 06:00] VITALS: BP 148/70
[2017-11-10 06:27] LABS: ANISOCYTOSIS 2+; HYPOCHROMASIA 1+; MICROCYTOSIS 1+; PLATELET ESTIMATE NORMAL
[2017-11-10] MEDS: polyethylene glycol 3350 17gm powd pack PO SCH ×3 (08:23→20:51)
[2017-11-10] MEDS: docusate sod 100mg capsule PO SCH ×2 (08:23→20:50)
[2017-11-10] MEDS: heparin, porcine 5000 units/ml vial SQ SCH ×2 (08:23→20:53)
[2017-11-10] MEDS: sennosides 8.6mg tablet PO SCH ×2 (08:24→20:50)
[2017-11-10] MEDS: amLODIPine 5mg tablet PO SCH (08:24)
[2017-11-10] MEDS: folic acid 1mg tablet PO SCH (08:24)
[2017-11-10] MEDS: carvedilol 6.25mg tablet PO SCH ×2 (08:24→20:51)
[2017-11-10] MEDS: hydrALAZINE 25 MG tablet PO SCH ×4 (08:24→23:34)
[2017-11-10] MEDS: HYDROcodone/acetaminophen 5mg/325mg tablet PO SCH ×4 (08:24→23:45)
[2017-11-10] MEDS: aspirin 81mg tablet.DR PO SCH (08:24)
[2017-11-10 11:00] VITALS: BP 152/67
[2017-11-10 15:00] VITALS: BP 136/67
[2017-11-10 17:20] LABS: HBSAG SCREEN Negative (Negative)
[2017-11-10 19:00] VITALS: BP 141/57
[2017-11-10] MEDS: insulin glargine (Lantus) pen - multi-dose SQ SCH (21:00)
[2017-11-10 23:00] VITALS: BP 146/75
[2017-11-11 03:00] VITALS: BP 150/72
[2017-11-11 05:27] LABS: BASOPHILS % (AUTO) 0.4 % (0-1); EOSINOPHILS # (AUTO) 0.5 X10'3 (0-0.9); EOSINOPHILS % (AUTO) 4.8 % (0-6); HEMATOCRIT 26.1 % (42.0-52.0); HEMOGLOBIN 8.3 g/dl (14.0-17.9); LYMPHOCYTES % (AUTO) 9.8 % (21-51); MEAN CORPUSCULAR HEMOGLOBIN 24.2 PG (27.0-31.0); MEAN CORPUSCULAR HGB CONC 31.8 % (33.0-36.5); MEAN CORPUSCULAR VOLUME 75.9 FL (78-98); MEAN PLATELET VOLUME 7.2 FL (7.4-10.4); MONOCYTES # (AUTO) 1.3 X10'3 (0-0.9); NEUTROPHILS # (AUTO) 7.7 X10'3 (1.8-7.7); PLATELET COUNT 329 X10'3 (140-440); RED BLOOD COUNT 3.44 X10'6 (4.70-6.10); RED CELL DISTRIBUTION WIDTH 19.3 % (11.5-14.5); WHITE BLOOD COUNT 10.6 X10'3 (4.5-11.0)
[2017-11-11 05:56] LABS: PLATELET ESTIMATE NORMAL
[2017-11-11 05:57] LABS: ALANINE AMINOTRANSFERASE 17 U/L (12-78); ALBUMIN 2.5 G/DL (3.4-5.0); ALBUMIN/GLOBULIN RATIO 0.5 (1.1-1.5); ALKALINE PHOSPHATASE 159 IU/L (46-116); ANION GAP 6 (8-16); ANISOCYTOSIS 2+; ASPARTATE AMINO TRANSFERASE 22 U/L (10-37); BILIRUBIN,TOTAL 0.8 MG/DL (0.1-1.0); BLOOD UREA NITROGEN 39 MG/DL (7-18); BUN/CREATININE RATIO 10.7 (5.4-32.0); CALCIUM 8.3 MG/DL (8.5-10.1); CHLORIDE 93 MMOL/L (99-107); CREATININE 3.65 MG/DL (0.60-1.10); GLUCOSE 175 MG/DL (70-104); MAGNESIUM 2.1 MG/DL (1.5-2.4); POTASSIUM 5.7 MMOL/L (3.5-5.1); SODIUM 129 MMOL/L (135-145); TOTAL PROTEIN 7.2 G/DL (6.4-8.2); eGFR 17 ML/MIN
[2017-11-11 06:00] VITALS: BP 139/58
[2017-11-11] MEDS: folic acid 1mg tablet PO SCH (07:50)
[2017-11-11] MEDS: polyethylene glycol 3350 17gm powd pack PO SCH ×3 (07:50→20:45)
[2017-11-11] MEDS: sennosides 8.6mg tablet PO SCH ×2 (07:50→19:15)
[2017-11-11] MEDS: aspirin 81mg tablet.DR PO SCH (07:50)
[2017-11-11] MEDS: heparin, porcine 5000 units/ml vial SQ SCH ×2 (07:50→19:16)
[2017-11-11] MEDS: docusate sod 100mg capsule PO SCH ×2 (07:50→19:15)
[2017-11-11] MEDS: carvedilol 6.25mg tablet PO SCH (07:51)
[2017-11-11] MEDS: hydrALAZINE 25 MG tablet PO SCH (07:51)
[2017-11-11] MEDS: HYDROcodone/acetaminophen 5mg/325mg tablet PO SCH ×2 (07:51→16:00)
[2017-11-11] MEDS: amLODIPine 5mg tablet PO SCH (07:51)
[2017-11-11] MEDS ORDERED: normal saline 1000ml 250 ML IV PRN (08:00)
[2017-11-11] MEDS ORDERED: heparin 1,000 units/ml 10ml inj HE ONE ×2 (08:00)
[2017-11-11] MEDS ORDERED: heparin 1,000unit/ml 10ml vial 10 ML IV ONE (08:00)
[2017-11-11] MEDS ORDERED: epoetin 20,000 units/ml inj IV ONE (08:00)
[2017-11-11 11:00] VITALS: BP 150/71
[2017-11-11 15:00] VITALS: BP 143/64
[2017-11-11 19:00] VITALS: BP 128/65
[2017-11-11] MEDS: carVEDilol 12.5mg tablet PO SCH (19:16)
[2017-11-11] MEDS: furosemide 40mg tablet PO SCH (20:44)
[2017-11-11] MEDS: insulin glargine (Lantus) pen - multi-dose SQ SCH (21:00)
[2017-11-11 23:00] VITALS: BP 152/62
[2017-11-12] MEDS: HYDROcodone/acetaminophen 5mg/325mg tablet PO SCH ×4 (00:03→23:07)
[2017-11-12 03:00] VITALS: BP 150/71
[2017-11-12 05:02] LABS: BASOPHILS % (AUTO) 0.5 % (0-1); EOSINOPHILS # (AUTO) 0.4 X10'3 (0-0.9); EOSINOPHILS % (AUTO) 4.6 % (0-6); HEMATOCRIT 25.9 % (42.0-52.0); HEMOGLOBIN 8.3 g/dl (14.0-17.9); LYMPHOCYTES # (AUTO) 0.9 X10'3 (1.1-4.8); LYMPHOCYTES % (AUTO) 10.5 % (21-51); MEAN CORPUSCULAR HEMOGLOBIN 24.3 PG (27.0-31.0); MEAN CORPUSCULAR HGB CONC 31.9 % (33.0-36.5); MEAN CORPUSCULAR VOLUME 76.1 FL (78-98); MEAN PLATELET VOLUME 6.7 FL (7.4-10.4); MONOCYTES # (AUTO) 1.1 X10'3 (0-0.9); MONOCYTES % (AUTO) 12.4 % (2-12); NEUTROPHILS # (AUTO) 6.3 X10'3 (1.8-7.7); PLATELET COUNT 316 X10'3 (140-440); RED CELL DISTRIBUTION WIDTH 19.1 % (11.5-14.5); WHITE BLOOD COUNT 8.7 X10'3 (4.5-11.0)
[2017-11-12 05:33] LABS: ALANINE AMINOTRANSFERASE 16 U/L (12-78); ALBUMIN 2.4 G/DL (3.4-5.0); ALBUMIN/GLOBULIN RATIO 0.5 (1.1-1.5); ALKALINE PHOSPHATASE 151 IU/L (46-116); ANION GAP 6 (8-16); ASPARTATE AMINO TRANSFERASE 18 U/L (10-37); BILIRUBIN,TOTAL 0.9 MG/DL (0.1-1.0); BLOOD UREA NITROGEN 23 MG/DL (7-18); BUN/CREATININE RATIO 8.6 (5.4-32.0); CALCIUM 8.3 MG/DL (8.5-10.1); CHLORIDE 96 MMOL/L (99-107); CREATININE 2.67 MG/DL (0.60-1.10); GLUCOSE 123 MG/DL (70-104); POTASSIUM 5.1 MMOL/L (3.5-5.1); SODIUM 131 MMOL/L (135-145); TOTAL CARBON DIOXIDE 29.5 MMOL/L (24-32); TOTAL PROTEIN 7.2 G/DL (6.4-8.2); eGFR 25 ML/MIN
[2017-11-12 06:54] LABS: PLATELET ESTIMATE NORMAL
[2017-11-12 06:55] LABS: ANISOCYTOSIS 1+; MICROCYTOSIS 1+
[2017-11-12 07:00] VITALS: BP 184/80
[2017-11-12] MEDS: heparin, porcine 5000 units/ml vial SQ SCH ×2 (08:00→20:25)
[2017-11-12] MEDS: carVEDilol 12.5mg tablet PO SCH ×2 (09:38→20:26)
[2017-11-12] MEDS: folic acid 1mg tablet PO SCH (09:38)
[2017-11-12] MEDS: furosemide 40mg tablet PO SCH ×3 (09:38→20:25)
[2017-11-12] MEDS: lisinopril 10 MG tablet PO SCH (09:39)
[2017-11-12] MEDS: aspirin 81mg tablet.DR PO SCH (09:39)
[2017-11-12] MEDS: docusate sod 100mg capsule PO SCH ×2 (09:39→20:26)
[2017-11-12] MEDS: sennosides 8.6mg tablet PO SCH ×2 (09:39→20:25)
[2017-11-12] MEDS: polyethylene glycol 3350 17gm powd pack PO SCH ×3 (09:40→21:00)
[2017-11-12] MEDS ORDERED: heparin 1,000unit/ml 10ml vial 10 ML IV ONE (09:58)
[2017-11-12] MEDS ORDERED: normal saline 1000ml 250 ML IV PRN (09:58)
[2017-11-12] MEDS ORDERED: heparin 1,000 units/ml 10ml inj HE ONE ×2 (10:05)
[2017-11-12 11:00] VITALS: BP 167/80
[2017-11-12 15:00] VITALS: BP 123/61
[2017-11-12 19:00] VITALS: BP 130/44
[2017-11-12] MEDS: insulin glargine (Lantus) pen - multi-dose SQ SCH (21:00)
[2017-11-12 23:00] VITALS: BP 125/58
[2017-11-13 03:00] VITALS: BP 150/67
[2017-11-13 06:00] VITALS: BP 150/61
[2017-11-13] MEDS: carVEDilol 12.5mg tablet PO SCH ×2 (08:00→20:14)
[2017-11-13] MEDS ORDERED: normal saline 1000ml 250 ML IV PRN (08:00)
[2017-11-13] MEDS: polyethylene glycol 3350 17gm powd pack PO SCH ×3 (08:00→20:26)
[2017-11-13] MEDS ORDERED: heparin 1,000unit/ml 10ml vial 10 ML IV ONE (08:00)
[2017-11-13] MEDS ORDERED: heparin 1,000 units/ml 10ml inj HE ONE ×2 (08:00)
[2017-11-13] MEDS ORDERED: epoetin 20,000 units/ml inj IV ONE (08:00)
[2017-11-13 09:32] LABS: BASOPHILS # (AUTO) 0.1 X10'3 (0-0.2); BASOPHILS % (AUTO) 0.6 % (0-1); EOSINOPHILS # (AUTO) 0.4 X10'3 (0-0.9); EOSINOPHILS % (AUTO) 4.4 % (0-6); HEMATOCRIT 25.7 % (42.0-52.0); HEMOGLOBIN 8.1 g/dl (14.0-17.9); LYMPHOCYTES % (AUTO) 10.7 % (21-51); MEAN CORPUSCULAR HEMOGLOBIN 24.1 PG (27.0-31.0); MEAN CORPUSCULAR HGB CONC 31.5 % (33.0-36.5); MEAN CORPUSCULAR VOLUME 76.5 FL (78-98); MEAN PLATELET VOLUME 6.7 FL (7.4-10.4); MONOCYTES # (AUTO) 1.3 X10'3 (0-0.9); MONOCYTES % (AUTO) 13.8 % (2-12); NEUTROPHILS # (AUTO) 6.5 X10'3 (1.8-7.7); NEUTROPHILS % (AUTO) 70.5 % (42-75); PLATELET COUNT 336 X10'3 (140-440); RED BLOOD COUNT 3.36 X10'6 (4.70-6.10); RED CELL DISTRIBUTION WIDTH 20.2 % (11.5-14.5); WHITE BLOOD COUNT 9.3 X10'3 (4.5-11.0)
[2017-11-13] MEDS: lisinopril 10 MG tablet PO SCH (09:50)
[2017-11-13] MEDS: HYDROcodone/acetaminophen 5mg/325mg tablet PO SCH ×3 (09:50→23:45)
[2017-11-13] MEDS: aspirin 81mg tablet.DR PO SCH (09:50)
[2017-11-13] MEDS: folic acid 1mg tablet PO SCH (09:50)
[2017-11-13] MEDS: sennosides 8.6mg tablet PO SCH ×2 (09:51→20:15)
[2017-11-13] MEDS: heparin, porcine 5000 units/ml vial SQ SCH ×2 (09:51→20:15)
[2017-11-13] MEDS: docusate sod 100mg capsule PO SCH ×2 (09:51→20:00)
[2017-11-13] MEDS: furosemide 40mg tablet PO SCH ×3 (09:51→20:14)
[2017-11-13 11:00] VITALS: BP 141/64
[2017-11-13 15:00] VITALS: BP 153/75
[2017-11-13 18:00] VITALS: BP 131/64
[2017-11-13] MEDS: insulin glargine (Lantus) pen - multi-dose SQ SCH (21:00)
[2017-11-14] VITALS (12 sets, daily range): BP systolic 129–171; BP diastolic 47–73
[2017-11-14] MEDS: sennosides 8.6mg tablet PO SCH ×2 (06:55→20:00)
[2017-11-14] MEDS: polyethylene glycol 3350 17gm powd pack PO SCH ×3 (06:55→21:00)
[2017-11-14] MEDS: docusate sod 100mg capsule PO SCH ×2 (08:00→21:13)
[2017-11-14] MEDS: lisinopril 10 MG tablet PO SCH (09:46)
[2017-11-14] MEDS: furosemide 40mg tablet PO SCH ×3 (09:46→21:14)
[2017-11-14] MEDS: aspirin 81mg tablet.DR PO SCH (09:46)
[2017-11-14] MEDS: carVEDilol 12.5mg tablet PO SCH ×2 (09:47→21:14)
[2017-11-14] MEDS: heparin, porcine 5000 units/ml vial SQ SCH ×2 (09:47→21:14)
[2017-11-14] MEDS: HYDROcodone/acetaminophen 5mg/325mg tablet PO SCH ×2 (09:47→16:39)
[2017-11-14] MEDS: folic acid 1mg tablet PO SCH (09:47)
[2017-11-14] MEDS ORDERED: normal saline 1000ml 250 ML IV PRN (10:56)
[2017-11-14] MEDS ORDERED: heparin 1,000unit/ml 10ml vial 10 ML IV ONE (10:56)
[2017-11-14] MEDS ORDERED: heparin 1,000 units/ml 10ml inj HE ONE ×2 (11:00)
[2017-11-14] MEDS ORDERED: LIDOcaine 1%/PF 5ML 10 MG/ML VIAL ONE (12:40)
[2017-11-14] MEDS: insulin glargine (Lantus) pen - multi-dose SQ SCH (21:00)
[2017-11-15] MEDS: HYDROcodone/acetaminophen 5mg/325mg tablet PO SCH ×4 (00:06→23:50)
[2017-11-15 02:00] VITALS: BP 154/85
[2017-11-15 04:56] LABS: BASOPHILS # (AUTO) 0.1 X10'3 (0-0.2); BASOPHILS % (AUTO) 0.6 % (0-1); EOSINOPHILS # (AUTO) 0.3 X10'3 (0-0.9); EOSINOPHILS % (AUTO) 3.9 % (0-6); HEMATOCRIT 26.5 % (42.0-52.0); HEMOGLOBIN 8.6 g/dl (14.0-17.9); LYMPHOCYTES # (AUTO) 0.4 X10'3 (1.1-4.8); LYMPHOCYTES % (AUTO) 5.1 % (21-51); MEAN CORPUSCULAR HEMOGLOBIN 24.7 PG (27.0-31.0); MEAN CORPUSCULAR HGB CONC 32.2 % (33.0-36.5); MEAN CORPUSCULAR VOLUME 76.7 FL (78-98); MEAN PLATELET VOLUME 6.8 FL (7.4-10.4); MONOCYTES % (AUTO) 11.8 % (2-12); NEUTROPHILS # (AUTO) 6.8 X10'3 (1.8-7.7); NEUTROPHILS % (AUTO) 78.6 % (42-75); PLATELET COUNT 343 X10'3 (140-440); RED BLOOD COUNT 3.46 X10'6 (4.70-6.10); RED CELL DISTRIBUTION WIDTH 19.6 % (11.5-14.5); WHITE BLOOD COUNT 8.6 X10'3 (4.5-11.0)
[2017-11-15 07:35] VITALS: BP 147/77
[2017-11-15] MEDS: ondansetron/PF 4mg/2ml inj IV PRN (07:37)
[2017-11-15] MEDS: aspirin 81mg tablet.DR PO SCH (07:45)
[2017-11-15] MEDS: heparin, porcine 5000 units/ml vial SQ SCH ×2 (07:45→21:08)
[2017-11-15] MEDS: folic acid 1mg tablet PO SCH (07:45)
[2017-11-15] MEDS: carVEDilol 12.5mg tablet PO SCH ×2 (07:45→21:07)
[2017-11-15] MEDS: docusate sod 100mg capsule PO SCH ×2 (07:46→20:00)
[2017-11-15] MEDS: furosemide 40mg tablet PO SCH ×3 (07:46→21:07)
[2017-11-15] MEDS: sennosides 8.6mg tablet PO SCH ×2 (07:51→20:00)
[2017-11-15] MEDS: polyethylene glycol 3350 17gm powd pack PO SCH ×3 (07:51→21:00)
[2017-11-15] MEDS: lisinopril 10 MG tablet PO SCH (07:52)
[2017-11-15] MEDS ORDERED: heparin 1,000 units/ml 10ml inj HE ONE ×2 (08:00)
[2017-11-15] MEDS ORDERED: heparin 1,000unit/ml 10ml vial 10 ML IV ONE (08:00)
[2017-11-15] MEDS ORDERED: epoetin 20,000 units/ml inj IV ONE (08:00)
[2017-11-15] MEDS ORDERED: normal saline 1000ml 250 ML IV PRN (08:00)
[2017-11-15 10:47] LABS: TOTAL CELLS COUNTED 100
[2017-11-15 10:48] LABS: PLATELET ESTIMATE NORMAL
[2017-11-15 10:49] LABS: ANISOCYTOSIS 2+; HYPOCHROMASIA 1+; MICROCYTOSIS 1+; POLYCHROMASIA 1+; ROULEAUX 1+
[2017-11-15 11:00] VITALS: BP 122/54
[2017-11-15 11:18] LABS: ALANINE AMINOTRANSFERASE 17 U/L (12-78); ALBUMIN 2.4 G/DL (3.4-5.0); ALBUMIN/GLOBULIN RATIO 0.5 (1.1-1.5); ALKALINE PHOSPHATASE 151 IU/L (46-116); ANION GAP 5 (8-16); ASPARTATE AMINO TRANSFERASE 24 U/L (10-37); BILIRUBIN,TOTAL 1.1 MG/DL (0.1-1.0); BLOOD UREA NITROGEN 31 MG/DL (7-18); BUN/CREATININE RATIO 10.3 (5.4-32.0); CALCIUM 8.4 MG/DL (8.5-10.1); CHLORIDE 94 MMOL/L (99-107); CREATININE 3.01 MG/DL (0.60-1.10); GLUCOSE 123 MG/DL (70-104); POTASSIUM 5.3 MMOL/L (3.5-5.1); SODIUM 128 MMOL/L (135-145); TOTAL CARBON DIOXIDE 28.7 MMOL/L (24-32); TOTAL PROTEIN 7.1 G/DL (6.4-8.2); eGFR 22 ML/MIN
[2017-11-15 11:19] LABS: TROPONIN I < 0.04 NG/ML (0.0-0.05)
[2017-11-15] MEDS ORDERED: cefepime 1GM/NS ADD-VANTAGE 100 ML IV ONE (13:00)
[2017-11-15 15:00] VITALS: BP 134/53
[2017-11-15 19:00] VITALS: BP 134/47
[2017-11-15] MEDS: insulin glargine (Lantus) pen - multi-dose SQ SCH (21:00)
[2017-11-15 23:00] VITALS: BP 178/50
[2017-11-16 03:00] VITALS: BP 178/50
[2017-11-16 07:00] VITALS: BP 107/43
[2017-11-16 07:37] LABS: BASOPHILS % (AUTO) 0.5 % (0-1); EOSINOPHILS # (AUTO) 0.1 X10'3 (0-0.9); EOSINOPHILS % (AUTO) 2.2 % (0-6); HEMATOCRIT 24.9 % (42.0-52.0); HEMOGLOBIN 7.9 g/dl (14.0-17.9); LYMPHOCYTES # (AUTO) 0.8 X10'3 (1.1-4.8); LYMPHOCYTES % (AUTO) 12.1 % (21-51); MEAN CORPUSCULAR HEMOGLOBIN 24.2 PG (27.0-31.0); MEAN CORPUSCULAR HGB CONC 31.6 % (33.0-36.5); MEAN CORPUSCULAR VOLUME 76.7 FL (78-98); MEAN PLATELET VOLUME 6.3 FL (7.4-10.4); MONOCYTES # (AUTO) 1.2 X10'3 (0-0.9); MONOCYTES % (AUTO) 18.3 % (2-12); NEUTROPHILS # (AUTO) 4.3 X10'3 (1.8-7.7); NEUTROPHILS % (AUTO) 66.9 % (42-75); PLATELET COUNT 318 X10'3 (140-440); RED BLOOD COUNT 3.24 X10'6 (4.70-6.10); RED CELL DISTRIBUTION WIDTH 20.1 % (11.5-14.5); WHITE BLOOD COUNT 6.4 X10'3 (4.5-11.0)
[2017-11-16 07:48] LABS: ALBUMIN 2.1 G/DL (3.4-5.0); ANION GAP 4 (8-16); BLOOD UREA NITROGEN 19 MG/DL (7-18); BUN/CREATININE RATIO 7.9 (5.4-32.0); CALCIUM 8.1 MG/DL (8.5-10.1); CHLORIDE 97 MMOL/L (99-107); CREATININE 2.39 MG/DL (0.60-1.10); GLUCOSE 148 MG/DL (70-104); SODIUM 132 MMOL/L (135-145); TOTAL CARBON DIOXIDE 31.3 MMOL/L (24-32); eGFR 28 ML/MIN
[2017-11-16] MEDS: aspirin 81mg tablet.DR PO SCH (07:51)
[2017-11-16] MEDS: folic acid 1mg tablet PO SCH (07:51)
[2017-11-16] MEDS: docusate sod 100mg capsule PO SCH ×2 (07:51→20:12)
[2017-11-16] MEDS: lisinopril 10 MG tablet PO SCH (07:51)
[2017-11-16] MEDS: carVEDilol 12.5mg tablet PO SCH ×2 (07:51→20:11)
[2017-11-16] MEDS: polyethylene glycol 3350 17gm powd pack PO SCH ×3 (07:52→20:18)
[2017-11-16] MEDS: furosemide 40mg tablet PO SCH ×3 (07:52→20:12)
[2017-11-16] MEDS: sennosides 8.6mg tablet PO SCH ×2 (07:52→20:11)
[2017-11-16] MEDS: HYDROcodone/acetaminophen 5mg/325mg tablet PO SCH ×3 (07:53→23:53)
[2017-11-16] MEDS: heparin, porcine 5000 units/ml vial SQ SCH ×2 (07:56→20:13)
[2017-11-16 09:09] LABS: TOTAL CELLS COUNTED 100
[2017-11-16 09:11] LABS: ANISOCYTOSIS 2+; HYPOCHROMASIA 1+; MICROCYTOSIS 1+; PLATELET ESTIMATE NORMAL
[2017-11-16 09:12] LABS: POLYCHROMASIA 1+
[2017-11-16 11:00] VITALS: BP 104/50
[2017-11-16 15:00] VITALS: BP 94/40
[2017-11-16 19:00] VITALS: BP 113/49
[2017-11-16] MEDS: insulin glargine (Lantus) pen - multi-dose SQ SCH (20:19)
[2017-11-16 23:00] VITALS: BP 129/59
[2017-11-17 03:00] VITALS: BP 131/68
[2017-11-17 07:00] VITALS: BP 127/65
[2017-11-17] MEDS: sennosides 8.6mg tablet PO SCH ×2 (07:52→20:06)
[2017-11-17] MEDS: folic acid 1mg tablet PO SCH (07:52)
[2017-11-17] MEDS: carVEDilol 12.5mg tablet PO SCH ×2 (07:52→20:06)
[2017-11-17] MEDS: lisinopril 10 MG tablet PO SCH (07:52)
[2017-11-17] MEDS: furosemide 40mg tablet PO SCH ×3 (07:52→20:41)
[2017-11-17] MEDS: docusate sod 100mg capsule PO SCH ×2 (07:52→20:06)
[2017-11-17] MEDS: HYDROcodone/acetaminophen 5mg/325mg tablet PO SCH ×3 (07:53→23:33)
[2017-11-17] MEDS: aspirin 81mg tablet.DR PO SCH (07:53)
[2017-11-17] MEDS: heparin, porcine 5000 units/ml vial SQ SCH ×2 (07:53→20:07)
[2017-11-17] MEDS: polyethylene glycol 3350 17gm powd pack PO SCH ×3 (08:00→20:36)
[2017-11-17 11:00] VITALS: BP 124/51
[2017-11-17] MEDS ORDERED: LISI10TA4 PO (14:50)
[2017-11-17] MEDS ORDERED: CARV-50 PO (14:50)
[2017-11-17] MEDS ORDERED: FOLI1CAP PO (14:50)
[2017-11-17] MEDS ORDERED: FURO40TA4 PO (14:50)
[2017-11-17 15:00] VITALS: BP 129/66
[2017-11-17 19:00] VITALS: BP 146/64
[2017-11-17] MEDS: insulin glargine (Lantus) pen - multi-dose SQ SCH (20:37)
[2017-11-17 23:00] VITALS: BP 140/70
[2017-11-18 02:00] VITALS: BP 134/56
[2017-11-18 04:59] LABS: HEMATOCRIT 24.6 % (42.0-52.0); MEAN CORPUSCULAR HEMOGLOBIN 24.7 PG (27.0-31.0); MEAN CORPUSCULAR HGB CONC 32.5 % (33.0-36.5); MEAN PLATELET VOLUME 6.5 FL (7.4-10.4); PLATELET COUNT 339 X10'3 (140-440); RED BLOOD COUNT 3.24 X10'6 (4.70-6.10); RED CELL DISTRIBUTION WIDTH 20.8 % (11.5-14.5)
[2017-11-18 07:00] VITALS: BP 127/63
[2017-11-18] MEDS: polyethylene glycol 3350 17gm powd pack PO SCH ×3 (08:00→20:07)
[2017-11-18] MEDS ORDERED: normal saline 1000ml 250 ML IV PRN (08:00)
[2017-11-18] MEDS ORDERED: epoetin 20,000 units/ml inj IV ONE (08:00)
[2017-11-18] MEDS: carVEDilol 12.5mg tablet PO SCH ×2 (08:00→20:00)
[2017-11-18] MEDS ORDERED: heparin 1,000unit/ml 10ml vial 10 ML IV ONE (08:00)
[2017-11-18] MEDS: furosemide 40mg tablet PO SCH ×3 (08:00→21:00)
[2017-11-18] MEDS: HYDROcodone/acetaminophen 5mg/325mg tablet PO SCH ×2 (08:00→16:00)
[2017-11-18] MEDS: sennosides 8.6mg tablet PO SCH ×2 (08:00→20:00)
[2017-11-18] MEDS ORDERED: heparin 1,000 units/ml 10ml inj HE ONE ×2 (08:00)
[2017-11-18] MEDS: aspirin 81mg tablet.DR PO SCH (08:09)
[2017-11-18] MEDS: docusate sod 100mg capsule PO SCH ×2 (08:10→20:00)
[2017-11-18] MEDS: folic acid 1mg tablet PO SCH (08:10)
[2017-11-18] MEDS: lisinopril 10 MG tablet PO SCH (08:10)
[2017-11-18] MEDS: heparin, porcine 5000 units/ml vial SQ SCH ×2 (08:13→21:24)
[2017-11-18 11:00] VITALS: BP 127/63
[2017-11-18 15:00] VITALS: BP 134/58
[2017-11-18 19:00] VITALS: BP 140/61
[2017-11-18] MEDS: insulin glargine (Lantus) pen - multi-dose SQ SCH (21:00)
[2017-11-18 23:00] VITALS: BP 154/48
[2017-11-19] MEDS: HYDROcodone/acetaminophen 5mg/325mg tablet PO SCH ×3 (00:24→16:00)
[2017-11-19 03:00] VITALS: BP 165/68
[2017-11-19 07:09] VITALS: BP 141/44
[2017-11-19] MEDS: sennosides 8.6mg tablet PO SCH ×2 (08:00→20:00)
[2017-11-19] MEDS: polyethylene glycol 3350 17gm powd pack PO SCH ×3 (08:00→21:00)
[2017-11-19] MEDS: docusate sod 100mg capsule PO SCH ×2 (08:00→20:00)
[2017-11-19] MEDS: furosemide 40mg tablet PO SCH ×3 (08:55→23:41)
[2017-11-19] MEDS: carVEDilol 12.5mg tablet PO SCH ×2 (08:55→23:41)
[2017-11-19] MEDS: aspirin 81mg tablet.DR PO SCH (08:55)
[2017-11-19] MEDS: folic acid 1mg tablet PO SCH (08:55)
[2017-11-19] MEDS: lisinopril 10 MG tablet PO SCH (08:55)
[2017-11-19] MEDS: heparin, porcine 5000 units/ml vial SQ SCH ×2 (08:57→23:43)
[2017-11-19] MEDS ORDERED: normal saline 1000ml 250 ML IV PRN (10:31)
[2017-11-19] MEDS ORDERED: heparin 1,000unit/ml 10ml vial 10 ML IV ONE (10:31)
[2017-11-19] MEDS ORDERED: heparin 1,000 units/ml 10ml inj HE ONE ×2 (10:35)
[2017-11-19] MEDS ORDERED: epoetin 20,000 units/ml inj IV ONE (10:35)
[2017-11-19 10:54] LABS: BASOPHILS # (AUTO) 0.1 X10'3 (0-0.2); BASOPHILS % (AUTO) 0.9 % (0-1); EOSINOPHILS # (AUTO) 0.4 X10'3 (0-0.9); EOSINOPHILS % (AUTO) 5.8 % (0-6); HEMOGLOBIN 8.4 g/dl (14.0-17.9); LYMPHOCYTES % (AUTO) 13.5 % (21-51); MEAN CORPUSCULAR HEMOGLOBIN 24.5 PG (27.0-31.0); MEAN CORPUSCULAR HGB CONC 32.2 % (33.0-36.5); MEAN CORPUSCULAR VOLUME 76.2 FL (78-98); MEAN PLATELET VOLUME 6.6 FL (7.4-10.4); MONOCYTES # (AUTO) 1.2 X10'3 (0-0.9); NEUTROPHILS # (AUTO) 4.5 X10'3 (1.8-7.7); NEUTROPHILS % (AUTO) 62.8 % (42-75); PLATELET COUNT 347 X10'3 (140-440); RED BLOOD COUNT 3.41 X10'6 (4.70-6.10); RED CELL DISTRIBUTION WIDTH 21.5 % (11.5-14.5); WHITE BLOOD COUNT 7.2 X10'3 (4.5-11.0)
[2017-11-19 11:00] VITALS: BP 121/54
[2017-11-19 11:11] LABS: ALANINE AMINOTRANSFERASE 18 U/L (12-78); ALBUMIN 2.1 G/DL (3.4-5.0); ALBUMIN/GLOBULIN RATIO 0.5 (1.1-1.5); ALKALINE PHOSPHATASE 132 IU/L (46-116); ANION GAP 4 (8-16); ASPARTATE AMINO TRANSFERASE 18 U/L (10-37); BILIRUBIN,TOTAL 0.7 MG/DL (0.1-1.0); BLOOD UREA NITROGEN 24 MG/DL (7-18); BUN/CREATININE RATIO 10.9 (5.4-32.0); CALCIUM 8.1 MG/DL (8.5-10.1); CHLORIDE 96 MMOL/L (99-107); CREATININE 2.21 MG/DL (0.60-1.10); GLUCOSE 193 MG/DL (70-104); PHOSPHORUS 3.4 MG/DL (2.3-4.5); SODIUM 131 MMOL/L (135-145); TOTAL CARBON DIOXIDE 31.4 MMOL/L (24-32); TOTAL PROTEIN 6.6 G/DL (6.4-8.2); eGFR 31 ML/MIN
[2017-11-19 11:28] LABS: ANISOCYTOSIS 3+; PLATELET ESTIMATE NORMAL
[2017-11-19 11:31] LABS: HYPOCHROMASIA 1+; SCHISTOCYTES FEW
[2017-11-19 11:32] LABS: POLYCHROMASIA FEW
[2017-11-19 15:00] VITALS: BP 130/61
[2017-11-19 19:00] VITALS: BP 133/67
[2017-11-19] MEDS: insulin glargine (Lantus) pen - multi-dose SQ SCH (19:47)
[2017-11-19 23:00] VITALS: BP 124/49
[2017-11-20 03:00] VITALS: BP 135/56
[2017-11-20 07:00] VITALS: BP 159/73
[2017-11-20] MEDS: polyethylene glycol 3350 17gm powd pack PO SCH ×2 (08:00→12:55)
[2017-11-20] MEDS: docusate sod 100mg capsule PO SCH (08:00)
[2017-11-20] MEDS: sennosides 8.6mg tablet PO SCH (08:00)
[2017-11-20] MEDS: folic acid 1mg tablet PO SCH (08:06)
[2017-11-20] MEDS: furosemide 40mg tablet PO SCH ×2 (08:06→12:50)
[2017-11-20] MEDS: aspirin 81mg tablet.DR PO SCH (08:08)
[2017-11-20] MEDS: carVEDilol 12.5mg tablet PO SCH (08:08)
[2017-11-20] MEDS: HYDROcodone/acetaminophen 5mg/325mg tablet PO SCH ×2 (08:08)
[2017-11-20] MEDS: lisinopril 10 MG tablet PO SCH (08:09)
[2017-11-20] MEDS: heparin, porcine 5000 units/ml vial SQ SCH (08:10)
[2017-11-20 11:00] VITALS: BP 159/63
== END 2017-11-20 14:52 | disposition home or self-care (01) | DRG 139 ==
LOC: ER 20:03 → ED HOLD 23:10 → PCU 3S 11-08 00:52
PROVIDERS: ADMIT Internal Medicine Critical Care Medicine; ATTEND Internal Medicine Critical Care Medicine
PROC: 5A1D70Z Performance of Urinary Filtration, Intermittent, Less than 6 Hours Per Day (ICD-10-PCS; principal; 2017-11-08)
PROC: 0W9B3ZX Drainage of Left Pleural Cavity, Percutaneous Approach, Diagnostic (ICD-10-PCS; 2017-11-09)
PROC: 5A1D70Z Performance of Urinary Filtration, Intermittent, Less than 6 Hours Per Day (ICD-10-PCS; 2017-11-11)
PROC: 5A1D70Z Performance of Urinary Filtration, Intermittent, Less than 6 Hours Per Day (ICD-10-PCS; 2017-11-12)
PROC: 5A1D70Z Performance of Urinary Filtration, Intermittent, Less than 6 Hours Per Day (ICD-10-PCS; 2017-11-13)
PROC: 5A1D70Z Performance of Urinary Filtration, Intermittent, Less than 6 Hours Per Day (ICD-10-PCS; 2017-11-14)
PROC: 0W9B3ZZ Drainage of Left Pleural Cavity, Percutaneous Approach (ICD-10-PCS; 2017-11-14)
PROC: 5A1D70Z Performance of Urinary Filtration, Intermittent, Less than 6 Hours Per Day (ICD-10-PCS; 2017-11-15)
PROC: 5A1D70Z Performance of Urinary Filtration, Intermittent, Less than 6 Hours Per Day (ICD-10-PCS; 2017-11-18)
PROC: 5A1D70Z Performance of Urinary Filtration, Intermittent, Less than 6 Hours Per Day (ICD-10-PCS; 2017-11-19)
DX: J18.9 Pneumonia, unspecified organism (principal); J96.01 Acute respiratory failure with hypoxia; I13.2 Hypertensive heart and chronic kidney disease with heart failure and with stage 5 chronic kidney disease, or end stage renal disease; J91.8 Pleural effusion in other conditions classified elsewhere; E11.22 Type 2 diabetes mellitus with diabetic chronic kidney disease; N18.6 End stage renal disease; I50.22 Chronic systolic (congestive) heart failure; F17.210 Nicotine dependence, cigarettes, uncomplicated; F15.90 Other stimulant use, unspecified, uncomplicated; F10.20 Alcohol dependence, uncomplicated; Z79.82 Long term (current) use of aspirin; Z79.899 Other long term (current) drug therapy; Z83.3 Family history of diabetes mellitus; Z89.511 Acquired absence of right leg below knee; Z89.512 Acquired absence of left leg below knee; Z99.2 Dependence on renal dialysis; Z86.14 Personal history of Methicillin resistant Staphylococcus aureus infection; Y90.9 Presence of alcohol in blood, level not specified; Z88.6 Allergy status to analgesic agent
CPT/HCPCS: 32555; 36415; 71045; 80048; 80053; 82150; 82945; 82948; 83036; 83605; 83615; 83735; 83986; 84100; 84145; 84157; 84484; 85007; 85025; 85027; 87040; 87070; 87075; 87077; 87186; 87340; 89051; 93005; 94760; 97162; 97530; 99285; A6212; A6213; A6250; A6258; A6402; G0257; J0692; J0885; J1644; J1815; J2001; J2060; J2405; J7030

== ENCOUNTER 2017-11-23 06:33 | Emergency (ER) | payer MEDICAID ==
[~2017-11-23 06:33] MED LIST changes: -ACET-2119 PO; -ALB0.5UD NEB; -AMLO10TA PO; -ASPI-1265 PO; +ASPI81TA52 PO; -BALS60OI TOP; +CARV-50 PO; -CARV6.253 PO; +DOCU-267 PO; -DOCU100C41 PO; -DOCU1ENE3 RC; -EPOE10005 HE; +FOLI1CAP PO; +FURO40TA4 PO; -HYDR-4069 PO; -INSU100C10 SQ; -INSU100I31 SQ; +INSU100I39 SQ; +LISI10TA4 PO; -MELA3TAB PO; -OMEP20TA23 PO; +ONDA4TAB12 PO; -ONDA4TAB9 SL; +SENN-161 PO; +SIME80TA16 PO; -SODI30SP3 BOTHNARES; -THI100T PO; -[UNRECOGNIZED DRUG - CODE] HE; -[UNRECOGNIZED DRUG - CODE] IV
[2017-11-23 07:22] LABS: BASOPHILS # (AUTO) 0.1 X10'3 (0-0.2); BASOPHILS % (AUTO) 0.5 % (0-1); EOSINOPHILS # (AUTO) 0.7 X10'3 (0-0.9); EOSINOPHILS % (AUTO) 5.9 % (0-6); HEMATOCRIT 27.5 % (42.0-52.0); HEMOGLOBIN 8.9 g/dl (14.0-17.9); LYMPHOCYTES # (AUTO) 1.5 X10'3 (1.1-4.8); MEAN CORPUSCULAR HEMOGLOBIN 24.5 PG (27.0-31.0); MEAN CORPUSCULAR HGB CONC 32.2 % (33.0-36.5); MEAN CORPUSCULAR VOLUME 76.1 FL (78-98); MONOCYTES # (AUTO) 1.2 X10'3 (0-0.9); MONOCYTES % (AUTO) 10.6 % (2-12); NEUTROPHILS # (AUTO) 7.9 X10'3 (1.8-7.7); PLATELET COUNT 532 X10'3 (140-440); RED BLOOD COUNT 3.62 X10'6 (4.70-6.10); RED CELL DISTRIBUTION WIDTH 21.7 % (11.5-14.5); WHITE BLOOD COUNT 11.3 X10'3 (4.5-11.0)
[2017-11-23 07:39] LABS: ALANINE AMINOTRANSFERASE 16 U/L (12-78); ALBUMIN 2.5 G/DL (3.4-5.0); ALBUMIN/GLOBULIN RATIO 0.5 (1.1-1.5); ALKALINE PHOSPHATASE 142 IU/L (46-116); ASPARTATE AMINO TRANSFERASE 19 U/L (10-37); BILIRUBIN,TOTAL 0.7 MG/DL (0.1-1.0); BLOOD UREA NITROGEN 54 MG/DL (7-18); BUN/CREATININE RATIO 18.8 (5.4-32.0); CREATININE 2.88 MG/DL (0.60-1.10); GLUCOSE 124 MG/DL (70-104); TOTAL CARBON DIOXIDE 27.9 MMOL/L (24-32); TOTAL PROTEIN 7.4 G/DL (6.4-8.2); eGFR 23 ML/MIN
[2017-11-23 07:41] LABS: ANION GAP 6 (8-16); CHLORIDE 100 MMOL/L (99-107); POTASSIUM 3.8 MMOL/L (3.5-5.1); SODIUM 134 MMOL/L (135-145)
[2017-11-23 07:43] LABS: TOTAL CELLS COUNTED 100
[2017-11-23 07:48] LABS: PLATELET ESTIMATE INCREASED
[2017-11-23 07:51] LABS: ANISOCYTOSIS 3+; HYPOCHROMASIA 1+
[2017-11-23 07:52] LABS: POLYCHROMASIA 1+
[2017-11-23 09:24] VITALS: BP 152/99
== END 2017-11-23 09:27 | disposition home or self-care (01) ==
LOC: ER 06:34
DX: R19.7 Diarrhea, unspecified (principal); I13.0 Hypertensive heart and chronic kidney disease with heart failure and stage 1 through stage 4 chronic kidney disease, or unspecified chronic kidney disease; E11.22 Type 2 diabetes mellitus with diabetic chronic kidney disease; N18.9 Chronic kidney disease, unspecified; I50.9 Heart failure, unspecified; Z86.14 Personal history of Methicillin resistant Staphylococcus aureus infection; F15.90 Other stimulant use, unspecified, uncomplicated; Z88.5 Allergy status to narcotic agent; Z79.82 Long term (current) use of aspirin; Z79.4 Long term (current) use of insulin; Z79.899 Other long term (current) drug therapy; Z99.2 Dependence on renal dialysis; Z60.2 Problems related to living alone
CPT/HCPCS: 36415; 80053; 82948; 85025; 99284; A6223; A6257